=== PATIENT | female | born 1980 | race African-American/Black ===

== ENCOUNTER 2017-06-06 00:49 | Emergency (ER) | payer OTHER ==
[~2017-06-06] VITALS: Ht 152.4 cm; Wt 165.0 kg
[~2017-06-06 00:49] MED LIST: ALBU6.7H INH; LISI-360 PO
[2017-06-06 00:52] VITALS: BP 160/93; PULSE 92; RESP 20; TEMP 97.7; O2SAT 100
[2017-06-06] MEDS ORDERED: SODIUM CHLOR 0.9% 1000 ML INJ 1,000 ML IV ONE ×2 (00:55→03:45)
--- NOTE | 2017-06-06 00:59 | PD ---
HPI Chief Complaint: Chest Pain Time Seen by Provider: 00:54 Travel History International Travel<30 days: No Contact w/Intl Traveler<30days: No Traveled to known affect area: No History of Present Illness HPI The patient is a 36-year-old female who presents to the emergency department via EMS for pain all over. The patient states she developed abdominal pain yesterday that was located in epigastrium and radiated to the lower quadrants bilaterally. She then developed chest pain earlier today that was followed by arm pain and leg pain. The patient does smoke crack cocaine, however, states the crack cocaine did not alleviate her symptoms. The chest pain is substernal, abdominal pain is diffuse but worse the right lower quadrant, and the myalgias are also diffuse. The patient does state she takes lisinopril for high blood pressure. The patient is unsure when her last menstrual cycle was. The patient is a somewhat limited historian. Patient's symptoms are moderate, possibly exacerbated by crack cocaine, and there are no current alleviating factors. PFSH Past Medical History Asthma: Yes Blood Disorders: No Bipolar Disorder: Yes Depression: Yes Heart Rhythm Problems: No Cancer: No Cardiovascular Problems: Yes (htn) High Cholesterol: No Chemotherapy: No Chest Pain: No Congestive Heart Failure: No COPD: No Diabetes: Yes Diminished Hearing: No Endocrine: No Genitourinary: No Hypertension: Yes Immune Disorder: No Insomnia: Yes Musculoskeletal: No Neurologic: No Psychiatric: No Reproductive: No Respiratory: No Immunizations Current: No Radiation Therapy: No Sleep Apnea: No Thyroid Disease: No : 3 Para: 1 Miscarriage: 2 Ectopic : Yes (2008) Dilation and Curettage (D&C): Yes Tubal Ligation: Yes Past Surgical History Section: Yes (2001) Gynecologic Surgery: Yes (salpingo-oopherectomy from ectopic ) Other Surgery: Yes (ectopic ) Social History Alcohol Use: Yes Tobacco Use: Yes (RECENTLY STOPPED) Substance Use: Yes (COCAINE-SMOKE LAST MONTH) Allergies-Medications (Allergen,Severity, Reaction): Coded Allergies: carbamazepine (Unverified Allergy, Severe, anaphalactic, 06/06/17) *MDRO Multi-Drug Resistant Organism (Unverified Allergy, Unknown, 06/06/17) MRSA - groin wound 02/2014 ibuprofen (Unverified Adverse Reaction, Intermediate, ABD PAIN, DIARRHEA, 06/06/17) Reported Meds & Prescriptions Reported Meds & Active Scripts Active Lisinopril 10 mg (Lisinopril) 10 Mg Tab 1 Tab PO DAILY 30 Days Proventil Hfa (Albuterol Sulfate) 6.7 Gm Aero 2 Puff INH Q4H PRN * SHAKE WELL BEFORE USE * Proventil Hfa (Albuterol Sulfate) 6.7 Gm Aero 2 Puff INH Q4H PRN * SHAKE WELL BEFORE USE * Review of Systems Except as stated in HPI: all other systems reviewed are Neg General / Constitutional: No: Fever Cardiovascular: Positive: Chest Pain or Discomfort Respiratory: No: Shortness of Breath Gastrointestinal: Positive: Nausea, Abdominal Pain, No: Vomiting Genitourinary: Positive: Pelvic Pain, No: Dysuria, Vaginal Bleeding Musculoskeletal: Positive: Myalgias Psychiatric: Positive: Substance Abuse Physical Exam Narrative GENERAL: Awake, alert, 36-year-old female appears her stated age and is in no acute respiratory distress. SKIN: Focused skin assessment warm/dry. HEAD: Atraumatic. Normocephalic. EYES: Pupils equal and round. Pupils are 3 mm bilateral and reactive. ENT: No nasal bleeding or discharge. Mucous membranes pink and moist. No visible teeth. NECK: Trachea midline. No JVD. CARDIOVASCULAR: Regular rate and rhythm. No murmur appreciated. Heart rate in the 90s. RESPIRATORY: No accessory muscle use. Clear to auscultation. Breath sounds equal bilaterally. GASTROINTESTINAL: Abdomen soft, tender to palpation diffusely, but worse with palpation the right lower quadrant. MUSCULOSKELETAL: No obvious deformities. No clubbing. No cyanosis. No edema. NEUROLOGICAL: Awake and alert. No obvious cranial nerve deficits. Motor grossly within normal limits. Normal speech. Nonfocal. PSYCHIATRIC: Odd affect. Data Data Last Documented VS Vital Signs Date Time Temp Pulse Resp B/P (MAP) Pulse Ox O2 Delivery O2 Flow Rate FiO2 06/06/17 00:52 97.7 92 20 160/93 (115) 100 Orders Orders Complete Blood Count With Diff (06/06/17 00:55) Comprehensive Metabolic Panel (06/06/17 00:55) Complete Rh (06/06/17 00:55) Us Pelvis (Ques Pr/Ect)W Trans (06/06/17 ) Ua Includes Microscopic (06/06/17 00:55) Iv Access Insert/Monitor (06/06/17 00:55) Ecg Monitoring (06/06/17 00:55) Sodium Chlor 0.9% 1000 Ml Inj (Ns 1000 M (06/06/17 00:55) Ondansetron Inj (Zofran Inj) (06/06/17 01:00) Ed Urine Pregnancytest Poc (06/06/17 00:55) Troponin I (06/06/17 00:55) Creatine Kinase (Cpk) (06/06/17 00:55) Lipase (06/06/17 00:59) Beta Hcg (Quant/Titer) (06/06/17 01:00) Sodium Chlor 0.9% 1000 Ml Inj (Ns 1000 M (06/06/17 03:45) Cath For Specimen (06/06/17 04:49) Labs Laboratory Tests Test 06/06/17 01:00 06/06/17 05:20 White Blood Count 5.0 TH/MM3 Red Blood Count 4.00 MIL/MM3 Hemoglobin 11.5 GM/DL Hematocrit 34.8 % Mean Corpuscular Volume 86.9 FL Mean Corpuscular Hemoglobin 28.6 PG Mean Corpuscular Hemoglobin Concent 33.0 % Red Cell Distribution Width 12.9 % Platelet Count 225 TH/MM3 Mean Platelet Volume 9.5 FL Neutrophils (%) (Auto) 70.3 % Lymphocytes (%) (Auto) 23.4 % Monocytes (%) (Auto) 5.5 % Eosinophils (%) (Auto) 0.3 % Basophils (%) (Auto) 0.5 % Neutrophils # (Auto) 3.5 TH/MM3 Lymphocytes # (Auto) 1.2 TH/MM3 Monocytes # (Auto) 0.3 TH/MM3 Eosinophils # (Auto) 0.0 TH/MM3 Basophils # (Auto) 0.0 TH/MM3 CBC Comment DIFF FINAL Differential Comment Blood Urea Nitrogen 14 MG/DL Creatinine 0.86 MG/DL Random Glucose 133 MG/DL Total Protein 7.6 GM/DL Albumin 3.5 GM/DL Calcium Level 8.6 MG/DL Alkaline Phosphatase 54 U/L Aspartate Amino Transf (AST/SGOT) 18 U/L Alanine Aminotransferase (ALT/SGPT) 17 U/L Total Bilirubin 0.6 MG/DL Sodium Level 137 MEQ/L Potassium Level 3.5 MEQ/L Chloride Level 104 MEQ/L Carbon Dioxide Level 25.2 MEQ/L Anion Gap 8 MEQ/L Estimat Glomerular Filtration Rate 90 ML/MIN Total Creatine Kinase 79 U/L Troponin I LESS THAN 0.02 NG/ML Lipase 149 U/L Human Chorionic Gonadotropin, Quant 2326 MIU/ML Urine Color YELLOW Urine Turbidity CLEAR Urine pH 5.5 Urine Specific [place] 1.032 Urine Protein 30 mg/dL Urine Glucose (UA) NEG mg/dL Urine Ketones NEG mg/dL Urine Occult Blood NEG Urine Nitrite NEG Urine Bilirubin NEG Urine Urobilinogen 2.0 MG/DL Urine Leukocyte Esterase NEG Urine RBC 1 /hpf Urine WBC 1 /hpf Urine Squamous Epithelial Cells 2 /hpf Urine Mucus MOD /lpf MDM Medical Decision Making Medical Screen Exam Complete: Yes Emergency Medical Condition: Yes Medical Record Reviewed: Yes Interpretation(s) EKG reveals normal sinus rhythm with a rate of 99. Voltage criteria for LVH. Nonspecific ST changes. Inverted T waves noted in lead 3. Ultrasound of the pelvis reveals complex fluid within the right adnexa with more simple-appearing fluid within the cul-de-sac. No gestational sac currently seen. Given the quantitative beta hCG this likely relates to the age of the which is below the threshold for technology solutions architect chin of the gestational sac. Consider short term follow-up pelvic ultrasound. Differential Diagnosis Differential diagnosis includes ectopic , rhabdomyolysis, pancreatitis , polysubstance abuse, pericarditis, myocarditis, acute coronary syndrome, cocaine abuse, acute renal failure, electrolyte abnormality. Narrative Course IV was established, labs are drawn and sent, and the patient was placed on cardiac telemetry monitoring and continuous pulse oximetry monitoring. Bedside UA test was positive, therefore, formal beta hCG was ordered. Ultrasound was ordered to rule out ectopic with abdominal pain located in the right lower quadrant and previous history of ectopic per EMR. EKG was ordered and interpreted. The patient was administered IV fluids and Zofran. Troponin, lipase, and CPK were sent to lab. Beta hCG was 2326. Ultrasound reveals complex fluid within the right adnexa with more simple-appearing fluid within the cul-de-sac, no gestational sac currently seen. Per radiology given the quantitative hCG this likely relates to the age of the which is below the threshold for ultrasound attacks and the gestational sac and they recommend short term follow-up pelvic ultrasound. I had a discussion with the patient she does note a history of previous right ectopic with previous surgery and removal of the right fallopian tube per her report. She denies any current vaginal bleeding. I reviewed the EMR, the patient underwent right salpingectomy [address] Sun. The patient's blood type was B+, therefore, no indication for RhoGAM. The patient was reevaluated at 6 AM, her abdominal pain is resolved. She denies any vaginal bleeding, UA is negative. She is advised to return in 48-72 hours for repeat beta hCG and ultrasound. Diagnosis Primary Impression: Threatened Additional Impression: Cocaine abuse affecting in first trimester Patient Instructions: General Instructions Additional Instructions: Take a vitamin daily. Return in 4872 hours for repeat beta hCG and ultrasound. Return sooner for vaginal bleeding and increasing abdominal pain. Stop using cocaine. Med/Other Pt SpecificInfo: No Change to Meds Disposition: 01 DISCHARGE HOME Condition: Stable Helio Anglin MD Jun 06, 2017 00:59
[2017-06-06] MEDS ORDERED: ONDANSETRON HCL 4 MG/2 ML VIAL IVP ONE (01:00)
--- NOTE | 2017-06-06 03:03 | RADRPT ---
EXAM DATE/TIME: 06/06/2017 01:38 [facility] COMPARISON: US PELVIS (QUEST PREG/ECTOPIC) W/TRANSVAG, November 07, 2013, 2:49. INDICATIONS : Pelvic pain. LAB(S): Beta-hC MEDICAL HISTORY : . Hypertension. Ectopic . Cerebrovascular accident. Diabetes. SURGICAL HISTORY : section. Tubal ligation. Dilation and curettage. Salpingo-ooperectomy. ENCOUNTER: Initial ACUITY: 1 day PAIN SCORE: 10/10 LOCATION: Bilateral pelvis MEASUREMENTS: UTERUS: 7.7 x 5.8 x 4.3 cm ENDOMETRIAL STRIPE: 7 mm RIGHT OVARY: NOT VISUALIZED cm LEFT OVARY: 3.6 x 2.0 x 2.1 cm FREE FLUID: Yes Left adnexa, cul-de-sac CROWN RUMP LENGTH: NOT VISUALIZED = WKS DAYS FHR: NOT VISUALIZED BPM FINDINGS: UTERUS: The myometrium has homogeneous echotexture without mass.No gestational sac observed. RIGHT OVARY: Surgically absent. Complex fluid is seen involving the right adnexa. LEFT OVARY: Left ovary contains a 17 mm simple cyst. MISCELLANEOUS: Complex fluid within the right adnexa with more simple fluid in the cul-de-sac. CONCLUSION: 1. Complex fluid within the right adnexa with more simple appearing fluid within the cul-de-sac. 2. No gestational sac currently seen. Given the quantitative beta hCG this likely relates to the age of the which is below the threshold for ultrasound detection of the gestational sac. Consid er a short term followup pelvic ultrasound. Sung Rubio Jr., MD on June 06, 2017 at 2:47 Board Certified Radiologist. This report was verified electronically.
[2017-06-06 03:18] LABS: AUTOMATED NEUTROPHIL # 3.5 TH/MM3 (1.8-7.7); BASOPHIL % 0.5 % (0.0-2.0); EOSINOPHIL % 0.3 % (0.0-4.0); HEMATOCRIT 34.8 % (35.0-46.0); HEMO FLAGS DIFF FINAL; LYMPH % 23.4 % (9.0-44.0); LYMPHOCYTE # 1.2 TH/MM3 (1.0-4.8); MEAN CELL VOLUME 86.9 FL (80.0-100.0); MEAN CORPUSCULAR HEMOGLOBIN 28.6 PG (27.0-34.0); MONO % 5.5 % (0.0-8.0); NEUT % 70.3 % (16.0-70.0); PLATELET COUNT 225 TH/MM3 (150-450); RED CELL DISTRIBUTION WIDTH 12.9 % (11.6-17.2)
[2017-06-06 03:20] LABS: ALKALINE PHOSPHATASE 54 U/L (45-117); ALT (GPT) 17 U/L (10-53); ANION GAP 8 MEQ/L (5-15); AST (GOT) 18 U/L (15-37); BETA HCG QUANT 2326 MIU/ML (0-5); BICARBONATE 25.2 MEQ/L (21.0-32.0); BLOOD UREA NITROGEN 14 MG/DL (7-18); CHLORIDE 104 MEQ/L (98-107); GLOMERULAR FILTRATION RATE 90 ML/MIN (>89); POTASSIUM 3.5 MEQ/L (3.5-5.1); SODIUM (NA) 137 MEQ/L (136-145)
[2017-06-06 03:37] LABS: CREATINE KINASE 79 U/L (26-192); TOTAL BILIRUBIN ADULT 0.6 MG/DL (0.2-1.0)
[2017-06-06 05:59] LABS: BLOOD, URINE NEG (NEG); GLUCOSE,URINE NEG (NEG); KETONE, URINE NEG (NEG); MUCUS URINE MOD /lpf (OCC); NITRITE,URINE NEG (NEG); PH, URINE 5.5 (5.0-8.5); SQUAMOUS EPITHELIAL CELL URINE 2 /hpf (0-5); URINE COLOR YELLOW (YELLW/STRAW)
--- NOTE | 2017-06-06 13:01 | EKG ---
Date Performed: 06/06/2017 Time Performed: 00:51:31 PTAGE: 36 years EKG: Sinus rhythm VOLTAGE CRITERIA FOR LVH MODERATE ST DEPRESSION ABNORMAL ECG INTERPRETATION BASED ON A DEFAULT AGE O F 40 YEARS NO PREVIOUS TRACING DOCTOR: Eliot Hernández Interpretating Date/Time 06/06/2017 12:57:59
== END 2017-06-06 06:51 | disposition home or self-care (01) ==
LOC: NEPC 00:49
DX: O20.0 Threatened abortion (principal); F14.10 Cocaine abuse, uncomplicated; R07.9 Chest pain, unspecified; J45.909 Unspecified asthma, uncomplicated; I10 Essential (primary) hypertension; E11.9 Type 2 diabetes mellitus without complications; R94.31 Abnormal electrocardiogram [ECG] [EKG]
CPT/HCPCS: 76700; 76817; 80053; 81001; 82550; 83690; 84484; 84702; 84703; 85025; 86901; 93005; 96374; 99285; J2405; J7030; P9612

== ENCOUNTER 2017-06-08 14:40 | Emergency (ER) | payer OTHER ==
[~2017-06-08] VITALS: Ht 152.4 cm; Wt 75.0 kg
[2017-06-08 14:44] VITALS: BP 142/79; PULSE 94; RESP 18; TEMP 98.6; O2SAT 99
--- NOTE | 2017-06-08 14:48 | PD ---
Physical Exam Date Seen by Provider: Jun 08, 2017 Time Seen by Provider: 14:46 Narrative 36 yo female here for evaluation of lab recheck. Seen here on the 8th for this. Concerned for . Told to come here for evaluation of blood and per patient "EKG". Per records for US. Vitals are stable in triage. Awaiting bed placement. Data Data Last Documented VS Vital Signs Date Time Temp Pulse Resp B/P (MAP) Pulse Ox O2 Delivery O2 Flow Rate FiO2 06/08/17 14:44 98.6 94 18 142/79 (100) 99 Room Air [facility] Medical Record Reviewed: Yes Supervised Visit with KATRINA: No Fernando Cheng Jun 08, 2017 14:47
--- NOTE | 2017-06-08 18:25 | PD ---
HPI Chief Complaint: Medical Clearance Time Seen by Provider: 17:31 Travel History International Travel<30 days: No Contact w/Intl Traveler<30days: No Traveled to known affect area: No History of Present Illness HPI This is a 36-year-old woman who presents to the emergency department complaining of abdominal pain, probably related to crack cocaine use. She was seen 2 days ago was found to be . She had a hCG of 2325. She had ultrasound that failed to show an IUP. She was recommended to return for repeat hCG and possible ultrasound. She endorses improvement in her epigastric abdominal pain and chest pain. Denies any vaginal bleeding or urinary symptoms. No other complaints. She is 4 para 1, 2 previous miscarriages including a previous ectopic. PFSH Past Medical History Narrative Medical Hypertension Bipolar disorder Crack cocaine use Diabetes Asthma: Yes Blood Disorders: No Bipolar Disorder: Yes Depression: Yes Heart Rhythm Problems: No Cancer: No Cardiovascular Problems: Yes (htn) High Cholesterol: No Chemotherapy: No Chest Pain: No Congestive Heart Failure: No COPD: No Diabetes: Yes Patient Takes Glucophage: No Diminished Hearing: No Endocrine: No Gastrointestinal Disorders: No Genitourinary: No Hypertension: Yes Immune Disorder: No Implanted Vascular Access Dvce: No Insomnia: Yes Musculoskeletal: No Neurologic: No Psychiatric: No Reproductive: No Respiratory: No Immunizations Current: No Radiation Therapy: No Sleep Apnea: No Thyroid Disease: No ?: LMP: 04/25/17 : 3 Para: 1 Miscarriage: 2 Ectopic : Yes (2008) Dilation and Curettage (D&C): Yes Tubal Ligation: Yes Past Surgical History Section: Yes (2001) Gynecologic Surgery: Yes (salpingo-oopherectomy from ectopic ) Other Surgery: Yes (ectopic ) Social History Alcohol Use: Yes Tobacco Use: Yes (RECENTLY STOPPED) Substance Use: Yes (COCAINE-SMOKE LAST MONTH) Allergies-Medications (Allergen,Severity, Reaction): Coded Allergies: carbamazepine (Unverified Allergy, Severe, anaphalactic, 06/06/17) *MDRO Multi-Drug Resistant Organism (Unverified Allergy, Unknown, 06/06/17) MRSA - groin wound 02/2014 ibuprofen (Unverified Adverse Reaction, Intermediate, ABD PAIN, DIARRHEA, 06/06/17) Reported Meds & Prescriptions Reported Meds & Active Scripts Active Reported Proventil Hfa 6.7 GM Inh (Albuterol Sulfate) 90 Mcg/Act Aer 2 Puff INH Q4-6H PRN Lisinopril 10 Mg Tab 10 Mg PO DAILY Review of Systems Except as stated in HPI: all other systems reviewed are Neg Physical Exam Narrative GENERAL: Well-appearing 36-year-old woman, no acute distress. SKIN: Focused skin assessment warm/dry. HEAD: Atraumatic. Normocephalic. CARDIOVASCULAR: Regular rate and rhythm. No murmur appreciated. RESPIRATORY: No accessory muscle use. Clear to auscultation. Breath sounds equal bilaterally. GASTROINTESTINAL: Abdomen flat and soft. No significant tenderness. MUSCULOSKELETAL: No obvious deformities. No edema. Data Data Last Documented VS Vital Signs Date Time Temp Pulse Resp B/P (MAP) Pulse Ox O2 Delivery O2 Flow Rate FiO2 06/08/17 18:46 83 18 138/83 (101) 98 Room Air 06/08/17 14:44 98.6 Orders Orders Beta Hcg (Quant/Titer) (06/08/17 17:34) Labs Laboratory Tests Test 06/08/17 18:05 Human Chorionic Gonadotropin, Quant 4992 MIU/ML [facility] Medical Decision Making Medical Screen Exam Complete: Yes Emergency Medical Condition: Yes Interpretation(s) HCG 4992, up from 2326 Differential Diagnosis Threatened AB, ectopic, IUP, other Narrative Course Medical decision making 36-year-old woman with epigastric abdominal pain, here for repeat hCG. HCG is doubling appropriately. No symptoms of abdominal pain or bleeding. Recommend outpatient follow-up. Diagnosis Primary Impression: Patient Instructions: General Instructions Additional Instructions: Follow-up with an hot stamp operator. Return to the emergency department for any worsening abdominal pain, vaginal bleeding, or any other new or worsening symptoms. Disposition: 01 DISCHARGE HOME Condition: Stable Scar Morris MD Jun 08, 2017 18:25
[2017-06-08 18:46] VITALS: BP 138/83; PULSE 83; RESP 18; O2SAT 98
[2017-06-08 18:46] LABS: BETA HCG QUANT 4992 MIU/ML (0-5)
[2017-06-08] MEDS ORDERED: LISI10TA3 PO (18:52)
[2017-06-08] MEDS ORDERED: ALBU6.7H INH (18:53)
== END 2017-06-08 19:40 | disposition home or self-care (01) ==
LOC: NEPD 14:40
DX: O26.899 Other specified pregnancy related conditions, unspecified trimester (principal); O26.20 Pregnancy care for patient with recurrent pregnancy loss, unspecified trimester; O10.919 Unspecified pre-existing hypertension complicating pregnancy, unspecified trimester; Z3A.00 Weeks of gestation of pregnancy not specified
CPT/HCPCS: 84702; 99283

== ENCOUNTER 2017-06-13 01:47 | Emergency (ER) | payer OTHER ==
[~2017-06-13] VITALS: Ht 152.4 cm; Wt 60.0 kg
[~2017-06-13 01:47] MED LIST changes: -LISI-360 PO; +LISI10TA3 PO
[2017-06-13 01:57] VITALS: BP 149/75; PULSE 90; RESP 18; TEMP 98.6; O2SAT 18; O2SAT 97
--- NOTE | 2017-06-13 02:56 | PD ---
HPI Chief Complaint: Abdominal Pain Time Seen by Provider: 02:15 Travel History International Travel<30 days: No Contact w/Intl Traveler<30days: No Traveled to known affect area: No History of Present Illness HPI 36 years old female complains of chest pain and abdominal pain. Patient states that the chest pain and abdominal pain started about week ago. Patient was seen in emergency room a week ago and was found to be . Ultrasound at that time failed to show an IUP. Beta hCG was 2325. Patient returned 2 days after that and beta hCG was double. Patient was advised to follow local physician. Patient states that she had persistent chest pain and abdominal pain since then. Patient states the chest pain is across anterior chest wall pressure. Patient denies any chest pain radiation. Patient denies palpitation nausea diaphoresis. Patient states abdominal pain is cramping pain and sharp pain diffuse over the abdomen however worse on the lower abdomen. Patient denies any pain radiation. Patient denies any nausea vomiting diarrhea. Patient denies any dysuria or frequency. Patient denies any vaginal discharge or bleeding. Patient denies any fever chills. Patient has history of crack cocaine use about a week ago. Patient states that she has been smoking marijuana recently. PFSH Past Medical History Asthma: Yes Blood Disorders: No Bipolar Disorder: Yes Depression: Yes Heart Rhythm Problems: No Cancer: No Cardiovascular Problems: Yes (htn) High Cholesterol: No Chemotherapy: No Chest Pain: No Congestive Heart Failure: No COPD: No Cerebrovascular Accident: Yes Diabetes: Yes Patient Takes Glucophage: No Diminished Hearing: No Endocrine: No Gastrointestinal Disorders: No Genitourinary: No Hypertension: Yes Immune Disorder: No Implanted Vascular Access Dvce: No Insomnia: Yes Musculoskeletal: No Neurologic: No Psychiatric: No Reproductive: No Respiratory: No Immunizations Current: No Radiation Therapy: No Sleep Apnea: No Thyroid Disease: No ?: : 3 Para: 1 Miscarriage: 2 Ectopic : Yes (2008) Dilation and Curettage (D&C): Yes Tubal Ligation: Yes Past Surgical History Section: Yes (2001) Gynecologic Surgery: Yes (salpingo-oopherectomy from ectopic ) Other Surgery: Yes (ectopic ) Social History Alcohol Use: Yes Tobacco Use: Yes (RECENTLY STOPPED) Substance Use: Yes (COCAINE-SMOKE LAST MONTH, MARIJUANA) Allergies-Medications (Allergen,Severity, Reaction): Coded Allergies: carbamazepine (Unverified Allergy, Severe, anaphalactic, 06/13/17) *MDRO Multi-Drug Resistant Organism (Unverified Allergy, Unknown, 06/13/17 ) MRSA - groin wound 02/2014 ibuprofen (Unverified Adverse Reaction, Intermediate, ABD PAIN, DIARRHEA, 06/13/17) Reported Meds & Prescriptions Reported Meds & Active Scripts Active Reported Proventil Hfa 6.7 GM Inh (Albuterol Sulfate) 90 Mcg/Act Aer 2 Puff INH Q4-6H PRN Lisinopril 10 Mg Tab 10 Mg PO DAILY Review of Systems General / Constitutional: No: Fever Eyes: No: Visual changes HENT: No: Headaches Cardiovascular: Positive: Chest Pain or Discomfort Respiratory: No: Shortness of Breath Gastrointestinal: Positive: Abdominal Pain Genitourinary: No: Dysuria Musculoskeletal: No: Pain Skin: No Rash Neurologic: No: Weakness Psychiatric: No: Depression Endocrine: No: Polydipsia Hematologic/Lymphatic: No: Easy Bruising Physical Exam Narrative GENERAL: Well-nourished, well-developed patient. SKIN: Focused skin assessment warm/dry. HEAD: Normocephalic. EYES: No scleral icterus. No injection or drainage. NECK: Supple, trachea midline. No JVD or lymphadenopathy. CARDIOVASCULAR: Regular rate and rhythm without murmurs, gallops, or rubs. RESPIRATORY: Breath sounds equal bilaterally. No accessory muscle use. GASTROINTESTINAL: Abdomen soft, nondistended. Patient has moderate diffuse tenderness over the abdomen especially lower abdomen. No rebound tenderness. No mass. MUSCULOSKELETAL: No cyanosis, or edema. BACK: Nontender without obvious deformity. No CVA tenderness. Neurologic exam normal. Data Data Last Documented VS Vital Signs Date Time Temp Pulse Resp B/P (MAP) Pulse Ox O2 Delivery O2 Flow Rate FiO2 06/13/17 03:12 Room Air 06/13/17 01:57 98.6 90 18 149/75 (99) 97 Orders Orders Complete Blood Count With Diff (06/13/17 02:41) Comprehensive Metabolic Panel (06/13/17 02:41) Prothrombin Time / Inr (Pt) (06/13/17 02:41) Act Partial Throm Time (Ptt) (06/13/17 02:41) Lipase (06/13/17 02:41) Beta Hcg (Quant/Titer) (06/13/17 02:41) Thyroid Stimulating Hormone (06/13/17 02:41) Iv Access Insert/Monitor (06/13/17 02:41) Ecg Monitoring (06/13/17 02:41) Oximetry (06/13/17 02:41) Chest, Single Ap (06/13/17 03:16) Us Pelvis (Ques Preg/Ectopic) (06/13/17 02:41) Labs Laboratory Tests Test 06/13/17 02:50 White Blood Count 9.6 TH/MM3 Red Blood Count 3.14 MIL/MM3 Hemoglobin 9.2 GM/DL Hematocrit 27.7 % Mean Corpuscular Volume 88.3 FL Mean Corpuscular Hemoglobin 29.4 PG Mean Corpuscular Hemoglobin Concent 33.3 % Red Cell Distribution Width 12.9 % Platelet Count 235 TH/MM3 Mean Platelet Volume 9.1 FL Neutrophils (%) (Auto) 84.8 % Lymphocytes (%) (Auto) 9.3 % Monocytes (%) (Auto) 5.1 % Eosinophils (%) (Auto) 0.4 % Basophils (%) (Auto) 0.4 % Neutrophils # (Auto) 8.1 TH/MM3 Lymphocytes # (Auto) 0.9 TH/MM3 Monocytes # (Auto) 0.5 TH/MM3 Eosinophils # (Auto) 0.0 TH/MM3 Basophils # (Auto) 0.0 TH/MM3 CBC Comment DIFF FINAL Differential Comment Prothrombin Time 10.4 SEC Prothromb Time International Ratio 0.9 RATIO Activated Partial Thromboplast Time 29.6 SEC Blood Urea Nitrogen 14 MG/DL Creatinine 0.88 MG/DL Random Glucose 133 MG/DL Total Protein 7.9 GM/DL Albumin 3.4 GM/DL Calcium Level 8.4 MG/DL Alkaline Phosphatase 67 U/L Aspartate Amino Transf (AST/SGOT) 19 U/L Alanine Aminotransferase (ALT/SGPT) 14 U/L Total Bilirubin 0.8 MG/DL Sodium Level 137 MEQ/L Potassium Level 3.3 MEQ/L Chloride Level 103 MEQ/L Carbon Dioxide Level 25.7 MEQ/L Anion Gap 8 MEQ/L Estimat Glomerular Filtration Rate 88 ML/MIN Lipase 117 U/L Thyroid Stimulating Hormone 3rd Gen 1.530 uIU/ML Human Chorionic Gonadotropin, Quant 6772 MIU/ML MDM Medical Decision Making Medical Screen Exam Complete: Yes Emergency Medical Condition: Yes Medical Record Reviewed: Yes Interpretation(s) 2:55 AM. EKG shows sinus rhythm with inverted T waves in 2, 3, aVF, V4 V5 and V6 which is new compared to previous EKG. Differential Diagnosis Differential diagnosis including angina, PE, pneumothorax, ectopic , threatened AB, incomplete AB, completed AB. Narrative Course 4:15 AM. Patient refused pelvic ultrasound because she does not like the information technology associate. I explained to the patient that information technology associate is the only one available tonight. 4:20 AM. I spoke with ED OB. ED OB advised me that patient will not be seen by him unless pelvic ultrasound done. VQ scan was ordered. VQ scan switch technician came to the bedside to take patient to nuclear medicine. Patient also refused VQ scan to rule out PE. I spoke with the patient several time and stressing the importance of having the studies done. Patient still refused ultrasound and VQ scan. 4:50 AM. I was informed by my nurse patient left the exam room and went outside to leave within left the building. Police department was contacted by the charge nurse to contact the patient to advise patient to come back to the ED for evaluation and treatment. Diagnosis Primary Impression: Ectopic Qualified Codes: O00.90 - Unspecified ectopic without intrauterine Additional Impression: Chest pain Qualified Codes: R07.9 - Chest pain, unspecified Disposition: 07 AGAINST MEDICAL ADVICE Condition: Serious Tolu Hou MD Jun 13, 2017 02:56
[2017-06-13 03:31] LABS: AUTOMATED NEUTROPHIL # 8.1 TH/MM3 (1.8-7.7); BASOPHIL % 0.4 % (0.0-2.0); EOSINOPHIL % 0.4 % (0.0-4.0); HEMATOCRIT 27.7 % (35.0-46.0); HEMO FLAGS DIFF FINAL; LYMPH % 9.3 % (9.0-44.0); LYMPHOCYTE # 0.9 TH/MM3 (1.0-4.8); MEAN CELL VOLUME 88.3 FL (80.0-100.0); MEAN CORPUSCULAR HEMOGLOBIN 29.4 PG (27.0-34.0); MEAN CORPUSCULAR HGB CONC 33.3 % (32.0-36.0); MONO % 5.1 % (0.0-8.0); NEUT % 84.8 % (16.0-70.0); PLATELET COUNT 235 TH/MM3 (150-450); RED BLOOD COUNT 3.14 MIL/MM3 (4.00-5.30); RED CELL DISTRIBUTION WIDTH 12.9 % (11.6-17.2); WHITE BLOOD COUNT 9.6 TH/MM3 (4.0-11.0)
[2017-06-13 03:43] LABS: APTT (PATIENT) 29.6 SEC (24.3-30.1); INTERNATIONAL NORMALIZED RATIO 0.9 RATIO; PROTHROMBIN TIME - PATIENT 10.4 SEC (9.8-11.6)
[2017-06-13 03:45] LABS: ALT (GPT) 14 U/L (10-53); ANION GAP 8 MEQ/L (5-15); AST (GOT) 19 U/L (15-37); BICARBONATE 25.7 MEQ/L (21.0-32.0); BLOOD UREA NITROGEN 14 MG/DL (7-18); CHLORIDE 103 MEQ/L (98-107); GLOMERULAR FILTRATION RATE 88 ML/MIN (>89); POTASSIUM 3.3 MEQ/L (3.5-5.1); SODIUM (NA) 137 MEQ/L (136-145)
--- NOTE | 2017-06-13 03:50 | RADRPT ---
EXAM DATE/TIME: 06/13/2017 03:33 [facility] COMPARISON: CHEST SINGLE AP, January 04, 2016, 21:04. INDICATIONS : Chest pain. MEDICAL HISTORY : . Hypertension. Ectopic . Cerebrovascular accident. Diabetes SURGICAL HISTORY : section. Tubal ligation. Dilation and curettage. Salpingo-ooperectomy ENCOUNTER: Initial ACUITY: 1 day PAIN SCORE: Non-responsive. LOCATION: Bilateral chest FINDINGS: A single view of the chest demonstrates the lungs to be symmetrically aerated without evidence of mas s, infiltrate or effusion. The cardiomediastinal contours are unremarkable. Osseous structures are intact. CONCLUSION: Normal examination. Michael Breen MD on June 13, 2017 at 3:48 Board Certified Radiologist. This report was verified electronically.
[2017-06-13 04:02] LABS: ALKALINE PHOSPHATASE 67 U/L (45-117); BETA HCG QUANT 6772 MIU/ML (0-5); TOTAL BILIRUBIN ADULT 0.8 MG/DL (0.2-1.0)
--- NOTE | 2017-06-13 05:20 | RADRPT ---
EXAM DATE/TIME: 06/13/2017 03:38 [facility] COMPARISON: No previous studies available for comparison. INDICATIONS : Pain. LAB(S): Beta-[facility]C MEDICAL HISTORY : . Hypertension. Ectopic . Cerebrovascular accident. Diabetes. Crack, cocaine abuse. SURGICAL HISTORY : section. Tubal ligation. Dilation and curettage. Salpingo-ooperectomy. ENCOUNTER: Subsequent ACUITY: 1 day PAIN SCORE: 5/10 LOCATION: Bilateral pelvis MEASUREMENTS: UTERUS: 10.2 x 6.9 x 6.0 cm ENDOMETRIAL STRIPE: 10 mm RIGHT OVARY: cm Non visualized LEFT OVARY: cm Non visualized FREE FLUID: Yes pelvis. FINDINGS: Only a transabdominal ultrasound was performed. The patient refused a transvaginal ultrasound examina tion. UTERUS: The myometrium has homogeneous echotexture without mass. An IUP is not seen. RIGHT OVARY: The right ovary is not seen. LEFT OVARY: Ovary contains no mass or significant cystic lesion. MISCELLANEOUS: There is a large amount of complex fluid in the cul-de-sac. CONCLUSION: 1. An IUP is not seen on the transabdominal ultrasound examination. The patient refused a transvagina l ultrasound examination. 2. Large amount of complex fluid in the cul-de-sac. Hemorrhage and ectopic are not excluded. Michael Breen MD on June 13, 2017 at 5:14 Board Certified Radiologist. This report was verified electronically.
== END 2017-06-13 05:35 | disposition left against medical advice (07) ==
LOC: NEPC 01:47
DX: O00.90 Unspecified ectopic pregnancy without intrauterine pregnancy (principal); F12.90 Cannabis use, unspecified, uncomplicated
CPT/HCPCS: 71010; 76700; 80053; 83690; 84443; 84702; 85025; 85610; 85730; 99285

== ENCOUNTER 2017-06-13 06:27 | Inpatient (IN) | payer OTHER ==
[~2017-06-13] VITALS: Ht 152.4 cm; Wt 74.0 kg
[2017-06-13] VITALS (10 sets, daily range): BP systolic 93–131; BP diastolic 53–79; PULSE 86–108; RESP 16–22; TEMP 97.9–98.9; O2SAT 22–100
[2017-06-13] MEDS ORDERED: OLANZapine ODT 10 MG TAB PO ONE (07:30)
--- NOTE | 2017-06-13 07:46 | EKG ---
Date Performed: 06/13/2017 Time Performed: 02:07:52 PTAGE: 36 years EKG: Sinus rhythm LEFT VENTRICULAR HYPERTROPHY AND ST-T CHANGE ABNORMAL ECG No significant change from prior electroca rdiogram. NO PREVIOUS TRACING DOCTOR: Gui Garland Interpretating Date/Time 06/13/2017 07:45:57
--- NOTE | 2017-06-13 08:21 | PD ---
HPI Chief Complaint: Related Problem Time Seen by Provider: 06:56 Travel History International Travel<30 days: No Contact w/Intl Traveler<30days: No Traveled to known affect area: No History of Present Illness HPI This is a 36-year-old female who has a history of bipolar disorder who presents to the emergency department with abdominal discomfort and chest discomfort, constant, moderate severity, worse with deep breaths. Patient does have a history of cocaine use. She is . She was seen overnight in the emergency department and had an ultrasound which demonstrated no in the uterus and she had a beta hCG of 6000 consistent with a likely ectopic . Patient became agitated and left AGAINST MEDICAL ADVICE. She returns here this morning for further evaluation and has her with her. PFSH Past Medical History Asthma: Yes Blood Disorders: No Bipolar Disorder: Yes Depression: Yes Heart Rhythm Problems: No Cancer: No Cardiovascular Problems: Yes (htn) High Cholesterol: No Chemotherapy: No Chest Pain: No Congestive Heart Failure: No COPD: No Cerebrovascular Accident: Yes Diabetes: Yes Patient Takes Glucophage: No Diminished Hearing: No Endocrine: No Gastrointestinal Disorders: No Genitourinary: No Hypertension: Yes Immune Disorder: No Implanted Vascular Access Dvce: No Insomnia: Yes Musculoskeletal: No Neurologic: No Psychiatric: No Reproductive: No Respiratory: No Immunizations Current: No Radiation Therapy: No Sleep Apnea: No Thyroid Disease: No Tetanus Vaccination: < 5 Years ?: LMP: 04/25/2017 : 3 Para: 1 Miscarriage: 2 Ectopic : Yes (2008) Dilation and Curettage (D&C): Yes Tubal Ligation: Yes Past Surgical History Section: Yes (2001) Gynecologic Surgery: Yes (salpingo-oopherectomy from ectopic ) Other Surgery: Yes (ectopic ) Social History Alcohol Use: Yes Tobacco Use: Yes (RECENTLY STOPPED) Substance Use: Yes (COCAINE-SMOKE LAST MONTH, MARIJUANA) Allergies-Medications (Allergen,Severity, Reaction): Coded Allergies: carbamazepine (Unverified Allergy, Severe, anaphalactic, 06/13/17) *MDRO Multi-Drug Resistant Organism (Unverified Allergy, Unknown, 06/13/17 ) MRSA - groin wound 02/2014 ibuprofen (Unverified Adverse Reaction, Intermediate, ABD PAIN, DIARRHEA, 06/13/17) Reported Meds & Prescriptions Reported Meds & Active Scripts Active Reported Proventil Hfa 6.7 GM Inh (Albuterol Sulfate) 90 Mcg/Act Aer 2 Puff INH Q4-6H PRN Lisinopril 10 Mg Tab 10 Mg PO DAILY Review of Systems Except as stated in HPI: all other systems reviewed are Neg Physical Exam Narrative GENERAL: Well-appearing, no acute distress, nontoxic SKIN: Warm and dry. HEAD: Atraumatic. Normocephalic. ENT: No nasal bleeding or discharge. Moist mucous membranes MUSCULOSKELETAL: No obvious deformities. No clubbing. No cyanosis. No edema. NEUROLOGICAL: Awake and alert. No obvious cranial nerve deficits. Motor grossly within normal limits. Normal speech. PSYCHIATRIC: Paranoia and pressured speech Data Data Last Documented VS Vital Signs Date Time Temp Pulse Resp B/P (MAP) Pulse Ox O2 Delivery O2 Flow Rate FiO2 06/13/17 07:55 86 18 113/79 (90) 100 Room Air 06/13/17 06:30 97.9 Orders Orders Troponin I (06/13/17 07:13) Ventilation & Perfusion Scan (06/13/17 ) Olanzapine Odt (Zyprexa Zydis Odt) (06/13/17 07:30) Electrocardiogram (06/13/17 02:07) Labs Laboratory Tests Test 06/13/17 07:45 [facility] Medical Decision Making Medical Screen Exam Complete: Yes Emergency Medical Condition: Yes Medical Record Reviewed: Yes (chart was reviewed from overnight with ultrasound demonstrating no intrauterine ) Interpretation(s) [place] 6[address] Pelvic ultrasound demonstrates no IUP and fluid in the cul-de-sac Differential Diagnosis Ectopic , ruptured ectopic , pulmonary embolism, myocardial infarction, dilated cardiomyopathy Narrative Course This is a 36-year-old female who presents to the emergency department with chest pain and abdominal discomfort. She has a history of bipolar disorder which resulted in her leaving AGAINST MEDICAL ADVICE overnight. Currently she appears stable with a normal heart rate and normal blood pressure. She is still somewhat manic and very paranoid on exam. I was concerned she would leave again and she agreed to take an antipsychotic medication. She was given Zyprexa. In discussion with the physician from overnight he was concerned for pulmonary embolism. Patient does have some diffuse T-wave inversions and LVH on EKG which I suspect are related to underlying cardiomyopathy perhaps due to her cocaine use but given her presence of pleuritic chest pain and VQ scan will be obtained. I spoke to the on-call automatic glove turner and former who will consult on the patient and consider potential surgical intervention versus medical management for ectopic following the results of the patient's VQ scan. I think she is stable and she'll be admitted to the medical service. Diagnosis Primary Impression: Ectopic Qualified Codes: O00.90 - Unspecified ectopic without intrauterine Additional Impression: Chest pain Qualified Codes: R07.9 - Chest pain, unspecified Admitting Information Admitting Physician Requests: it Carmen Hinojosa MD Jun 13, 2017 08:21
--- NOTE | 2017-06-13 08:56 | HHI.HP ---
HPI Service Family Medicine Primary Care Physician Unknown Admission Diagnosis ectopic , chest pain Diagnoses: International Travel<30 Days: No Contact w/Intl Traveler<30days: No Known Affected Area: No History of Present Illness Pt is a 36 y/o w/hx of cocaine use and bipolar disorder who presents to [place] ED with one week of abdominal pain and chest discomfort. Patient is somnolent and unable to provide hx at time of interview. Only rouses momentarily to pain. She was described as disruptive and manic on admission, so was given Zyprexa in the ED. Patient has been previously seen in the ED with similar complaints (06/06/2017). Quant hCG was 2326, + test, but U/S showed no intrauterine .She was sent home and returned on 06/08 where hcG doubled and d/c'd. Patient arrived at ED early this AM with increased quant hCG and similar abdominal pain. US in the ED showed free fluid in the posterior cul-de-sac suspicious for hemorrhage/ruptured ectopic. For her chest discomfort, EKG was performed, showed t-wave inversions and possible LVH raising concern for PE v recent cocaine use. V/Q scan was positive for PE. Patient underwent diagnostic laparoscopy today due to concern for ruptured ectopic, which was found to have been adherent to part of the sigmoid colon and had partially eroded it. Resection of the involved tube was performed and 1200ml of blood was evacuated. Patient was transferred to critical care floor and is being closely followed. (Debbie Jensen MD R1) Review of Systems ROS Limitations: Unresponsive (Debbie Jensen MD R1) Past Family Social History Past Medical History Asthma Bipolar Disorder Depression HTN Diabetes 6 wks ectopic (LMP 04/25/17) Hx of Ectopic in 2008, followed by D&C Past Surgical History Section 2001 h/o right salpingectomy for ectopic - 12/2013 tubal ligation Reported Medications citalopram - 20 mg (Debbie Jensen MD R1) Allergies: Coded Allergies: carbamazepine (Unverified Allergy, Severe, anaphalactic, 06/13/17) *MDRO Multi-Drug Resistant Organism (Unverified Allergy, Unknown, 06/13/17 ) MRSA - groin wound 02/2014 ibuprofen (Unverified Adverse Reaction, Intermediate, ABD PAIN, DIARRHEA, 06/13/17) Family History Not able to assess Social History No alcohol use 5 cigarettes/week Smoked cocaine last month Marijuana use (Debbie Jensen MD R1) Physical Exam Vital Signs Vital Signs Date Time Temp Pulse Resp B/P (MAP) Pulse Ox O2 Delivery O2 Flow Rate FiO2 06/13/17 07:55 86 18 113/79 (90) 100 Room Air 06/13/17 06:30 97.9 94 16 131/73 (92) 97 Room Air Physical Exam GENERAL: This is a stuporous female lying supine in bed. SKIN: Cool and dry. HEAD: Atraumatic. Normocephalic. N EYES: Pupils constricted, slightly reactive to light ENT: deferred NECK: Trachea midline. CARDIOVASCULAR: Regular rate and rhythm without murmurs, gallops, or rubs. RESPIRATORY: Clear to auscultation. Breath sounds equal bilaterally. GASTROINTESTINAL: Abdomen soft, nondistended. Jumps in bed and shows gaurding upon moderate to deep palpation of her abdomen. MUSCULOSKELETAL: Extremities without edema. NEUROLOGICAL: Somnolent. Not responsive to peripheral stimuli. Does not follow commands. Laboratory Laboratory Tests Test 06/13/17 07:45 Troponin I LESS THAN 0.02 (Debbie Jensen MD R1) Imaging Last 24 hours Impressions Lung Scan Nuclear Medicine 06/13/17 0000 Signed Impressions: Service Date/Time: Tuesday, June 13, 2017 09:12 - CONCLUSION: Large perfusion defect involving the left mid to left lower lung characteristic for pulmonary embolism. Steven Elkins MD Per CTA 06/13/17 report CONCLUSION: 1. No evidence of pulmonary embolism. 2. Left basilar airspace disease accounting for abnormality seen on ventilation/ perfusion lung scan. 3. Mild cardiomegaly. (Debbie Jensen MD R1) Caprini VTE Risk Assessment Caprini VTE Risk Assessment: No/Low Risk (score <= 1) Caprini Risk Assessment Model Point Value = 1 Point Value = 2 Point Value = 3 Point Value = 5 Age 41-60 Minor surgery BMI > 25 kg/m2 Swollen legs Varicose veins or History of unexplained or recurrent spontaneous Oral contraceptives or hormone replacement Sepsis (< 1 month) Serious lung disease, including pneumonia (< 1 month) Abnormal pulmonary function Acute myocardial infarction Congestive heart failure (< 1 month) History of inflammatory bowel disease Medical patient at bed rest Age 61-74 Arthroscopic surgery Major open surgery (> 45 min) Laparoscopic surgery (> 45 min) Malignancy Confined to bed (> 72 hours) Immobilizing plaster cast Central venous access Age >= 75 History of VTE Family history of VTE Factor V Leiden Prothrombin [id number] Lupus anticoagulant Anticardiolipin antibodies Elevated serum homocysteine Heparin-induced thrombocytopenia Other congenital or acquired thrombophilia Stroke (< 1 month) Elective arthroplasty Hip, pelvis, or leg fracture Acute spinal cord injury (< 1 month) Prophylaxis Regimen Total Risk Factor Score Risk Level Prophylaxis Regimen 0-1 Low Early ambulation 2 Moderate Order ONE of the following: *Sequential Compression Device (SCD) *Heparin 5000 units SQ BID 3-4 Higher Order ONE of the following medications: *Heparin 5000 units SQ TID *Enoxaparin/Lovenox 40 mg SQ daily (WT < 150 kg, CrCl > 30 mL/min) *Enoxaparin/Lovenox 30 mg SQ daily (WT < 150 kg, CrCl > 10-29 mL/min) *Enoxaparin/Lovenox 30 mg SQ BID (WT < 150 kg, CrCl > 30 mL/min) AND/OR *Sequential Compression Device (SCD) 5 or more Highest Order ONE of the following medications: *Heparin 5000 units SQ TID (Preferred with Epidurals) *Enoxaparin/Lovenox 40 mg SQ daily (WT < 150 kg, CrCl > 30 mL/min) *Enoxaparin/Lovenox 30 mg SQ daily (WT < 150 kg, CrCl > 10-29 mL/min) *Enoxaparin/Lovenox 30 mg SQ BID (WT < 150 kg, CrCl > 30 mL/min) AND *Sequential Compression Device (SCD) (Debbie Jensen MD R1) Assessment and Plan Attending Attestation THIS CASE WAS DISCUSSED WITH THE RESIDENT PHYSICIANS. I HAVE REVIEWED THE RECORD AND AGREE WITH THE ABOVE NOTE AND PLAN OF CARE WAS DISCUSSED. I HAVE AUTHORIZED THE ORDER FOR ADMISSION TO AN IN-PATIENT STATUS. (Davida Quintana MD) Problem List: (1) Ectopic ICD Codes: O00.90 - Unspecified ectopic without intrauterine Status: Acute Plan: History of six-week with elevated Quant hCG. Patient in ICU. OR 06/13/17 for removal of ectopic and associated hemorrhage. Transferred to ICU. -Gynecology consulted -IV maintenance fluids -Monitoring hourly urine output via Sood -Daily CBC and CMP (2) Chest pain ICD Codes: R07.9 - Chest pain, unspecified Status: Acute Plan: Experiencing chest discomfort on admission. EKG shows T-wave inversions and LVH. No change in repeat echo -PE ruled out with V/Q, CTA (left basilar airspace disease noted), and lower extremity Dopplers -UDS positive for cocaine -Ordered echo to evaluate for cardiomyopathy secondary to long-term cocaine use -On cardiac telemetry -Monitor vitals (3) Bipolar disorder ICD Codes: F31.9 - Bipolar disorder, unspecified Plan: Possibly uncontrolled bipolar disorder,hx of leaving AMA, p -await psychiatry Recs (4) HTN (hypertension) ICD Codes: I10 - Essential (primary) hypertension Plan: 173/86 on admission -labetalol, hydralazine prn (5) FEN Plan: Fluids: IVF Diet: NPO DVT Prophy: none SW Dr. Macias (Debbie Jensen MD R1) Physician Certification 2 Midnight Certification Type: Admission for Inpatient Services Order for Inpatient Services The services are ordered in accordance with Medicare regulations or non- Medicare payer requirements, as applicable. In the case of services not specified as inpatient-only, they are appropriately provided as inpatient services in accordance with the 2-midnight benchmark. Estimated LOS (days): 2 2 days is the estimated time the patient will need to remain in the hospital, assuming treatment plan goals are met and no additional complications. Post-Hospital Plan: Home (Debbie Jensen MD R1) 2 Midnight Certification Type: Admission for Inpatient Services Post-Hospital Plan: Home (Davida Quintana MD) Problem Qualifiers (1) Ectopic : Qualified Codes: O00.90 - Unspecified ectopic without intrauterine (2) Chest pain: Qualified Codes: R07.9 - Chest pain, unspecified Debbie Jensen MD R1 Jun 13, 2017 08:56 Davida Quintana MD Jun 14, 2017 13:30
--- NOTE | 2017-06-13 09:05 | PD ---
HPI Chief Complaint Abdominal pain 1 week. chest pain 1 day, Positive test, Nil seen intrauterine on US Date Seen: Jun 13, 2017 Time Seen: 08:40 Travel History International Travel<30 Days: No Contact w/Intl Traveler<30Days: No Known Affected Area: No History of Present Illness HPI Pt is a 36 yo who presents to the ER at [facility], with c/ o 1 week h/o abdominal and chest pain. Pt gave LMP as 04-27-2017 making her 6 weeks and 5 days amenorrhea. Pt first presented to ER with same complaints 06-06-2017. She was noted to be but US showed nil intrauterine and Quant hCG was 2326. She was sent home and FU 06-08-2017 when Quant hCG was repeated and was 4992. US was not repeated. Pt returned last night with worsening abdominal and chest pain. Quant hCG was 6772. Pt also had pleuritic chest pain and some EKG changes concerning for PE or cardiomyopathy related to cocaine use. Pt has a h/o bipolar disorder and left ER and went home. Apparently patient walked home ( 45 minutes away), and had to be brought back here by the Police. US shows nil intrauterine, and significantly free fluid suspicious for hemorrhage. Right ovary was not visualized , but left ovary appeared wnl. Significantly pt has a h/o right salpingectomy for ectopic . She has a h/o hypertension, bipolar disorder, and has had C Section, tubal ligation.She has a h/o crack cocaine use, stating she last used a month ago. Pt apparently was disruptive and paranoid and was given Zyprexa to calm her out and is currently unable to give a history. History was obtained from . History Past Medical History Narrative Medical Hypertension, Bipolar disorder Obstetric History Obstetric History Pt has a 15 yo son, delivered by C Section; [place] [facility] [place] D&C Past Surgical History Narrative Surgical C section, Tubal ligation, D&C, Right salpingectomy Family History Family History: family h/o diabetes and hypertension. Social History Alcohol Use: Yes Tobacco Use: Yes (3cigarettes per day) Substance Abuse: Yes (marijuana, crack cocaine use.) Allergies-Medications (Allergen,Severity, Reaction): Coded Allergies: carbamazepine (Unverified Allergy, Severe, anaphalactic, 06/13/17) *MDRO Multi-Drug Resistant Organism (Unverified Allergy, Unknown, 06/13/17 ) MRSA - groin wound 02/2014 ibuprofen (Unverified Adverse Reaction, Intermediate, ABD PAIN, DIARRHEA, 06/13/17) Home Meds Reported Medications Albuterol 6.7 GM Inh (Proventil Hfa 6.7 GM Inh) 90 Mcg/Act Aer, 2 PUFF INH Q4- 6H Y for SHORTNESS OF BREATH, #1 INHALER 0 Refills 06/08/17 Lisinopril (Lisinopril) 10 Mg Tab, 10 MG PO DAILY, #30 TAB 0 Refills 06/08/17 Discontinued Scripts Lisinopril 10 mg (Lisinopril 10 mg) 10 Mg Tab, 1 TAB PO DAILY for 30 Days, TAB Prov:Marilyn Dang MD 01/04/16 Albuterol Sulfate (Proventil Hfa) 6.7 Gm Aero, 2 PUFF INH Q4H Y for WHEEZING, # 1 BOX * SHAKE WELL BEFORE USE * Prov:Marilyn Dang MD 01/04/16 Albuterol Sulfate (Proventil Hfa) 6.7 Gm Aero, 2 PUFF INH Q4H Y for WHEEZING, # 1 INHALER 1 Refill * SHAKE WELL BEFORE USE * Prov:JOVANNY MARTINEZ M.D. 06/25/14 Review of Systems Except as stated in HPI: all other systems reviewed are Neg Physical Exam Vital Signs Date Time Temp Pulse Resp B/P (MAP) Pulse Ox O2 Delivery O2 Flow Rate FiO2 06/13/17 07:55 86 18 113/79 (90) 100 Room Air 06/13/17 06:30 97.9 94 16 131/73 (92) 97 Room Air Narrative GENERAL: Well-nourished, well-developed patient. SKIN: Warm and dry. HEAD: Normocephalic and atraumatic. EYES: No scleral icterus. No injection or drainage. ENT: No nasal drainage noted. Mucous membranes pink. Airway patent. NECK: Supple, trachea midline. No JVD. CARDIOVASCULAR: Regular rate and rhythm without murmurs, gallops, or rubs. RESPIRATORY: Breath sounds equal bilaterally. No accessory muscle use. BREASTS: Bilateral exam showed no masses , no retractions, no nipple discharge. ABDOMEN/GI: Abdomen soft, tender low abdomen, no guarding, bowel sounds present , no rebound, no guarding EXTREMITIES: No cyanosis or edema. BACK: Nontender without obvious deformity. No CVA tenderness. NEUROLOGICAL: Awake and alert. Motor and sensory grossly within normal limits. Five out of 5 muscle strength in all muscle groups. Normal speech. Data Data Vital Signs Reviewed: Yes Orders Orders Troponin I (06/13/17 07:13) Ventilation & Perfusion Scan (06/13/17 ) Olanzapine Odt (Zyprexa Zydis Odt) (06/13/17 07:30) Electrocardiogram (06/13/17 02:07) Admit Order (Ed Use Only) (06/13/17 08:39) Labs Laboratory Tests Test 06/13/17 07:45 Troponin I LESS THAN 0.02 MDM Medical Record Reviewed: Yes Plan 36 yo presenting with 6 weeks amenorrhea, positive test, abdominal pain and chest pain and nil seen intrauterine on ultrasound with free fluid in pelvis. Pt has had suboptimal Quant hCG rise between 06-08-2017 and 06-13-2017 from 4992 to 6772. Hg is 9.2 g/dL and vitals are stable wnl. Pt has h/o right sided ectopic, Picture suggests ruptured ectopic . Pt is currently unable to allow exam or give consent and is stable. I have suggested , being currently hemodynamically stable, for the PE to be ruled out, and allow pt recover from her sedation. She is having a V/Q scan done and we will follow after. She will need laparoscopy. Diagnosis Diagnosis: Primary Impression: Ectopic Qualified Codes: O00.90 - Unspecified ectopic without intrauterine Additional Impression: Chest pain Qualified Codes: R07.9 - Chest pain, unspecified Khris Reyes MD Jun 13, 2017 09:05
--- NOTE | 2017-06-13 10:11 | RADRPT ---
EXAM DATE/TIME: 06/13/2017 09:12 [facility] COMPARISON: CHEST SINGLE AP, June 13, 2017, 3:33. INDICATIONS : Chest and abdominal pain. DOSE: 1.1 mCi Tc99m Labeled MAA IV MEDICAL HISTORY : Hypertension. SURGICAL HISTORY : Tubal ligation. ENCOUNTER: Initial ACUITY: 1 week PAIN SCALE: 3/10 LOCATION: chest TECHNIQUE: The patient was injected with MAA, and eight-view perfusion scan was performed. FINDINGS: PERFUSION: There is homogeneous uptake of tracer activity throughout the right lung. However there is a large pe rfusion defect involving the left mid and left lower lung characteristic for pulmonary embolism. The findings were called by telephone to the attending ENTERPRISE ARCHITECT MANAGER physician. CONCLUSION: Large perfusion defect involving the left mid to left lower lung characteristic for pulmonary embolis shayla Elkins MD on June 13, 2017 at 10:06 Board Certified Radiologist. This report was verified electronically.
[2017-06-13] MEDS ORDERED: ACETAMINOPHEN 325 MG TAB PO PRN ×2 (10:30→14:30)
--- NOTE | 2017-06-13 10:36 | HHI.PR ---
Objective Vital Signs Date Time Temp Pulse Resp B/P (MAP) Pulse Ox O2 Delivery O2 Flow Rate FiO2 06/13/17 07:55 86 18 113/79 (90) 100 Room Air 06/13/17 06:30 97.9 94 16 131/73 (92) 97 Room Air Assessment and Plan Assessment and Plan 1. Ruptured ectopic . She has a history of ectopic I have reviewed the ultrasound personally she has quite a bit of blood in her posterior cul-de- sac she has an acute abdomen with rebound even though she is quite drowsy from the medication before. She needs to have operative intervention he is not a candidate for methotrexate. 2. Pulmonary embolism. Her VQ scan is positive for pulmonary embolism she needs to be anticoagulated however I would do this postop she also needs Doppler studies of her lower extremities to find the source of her pulmonary emboli. I would not use PCDs this lady in case this is the source of her PE. We will obtain this postoperatively and also anticoagulate her. She has been admitted to the resident service and I will follow her closely. 3. History of cocaine abuse. I have ordered a urine drug screen but that has not been accomplished yet. I have also informed anesthesia about this patient in terms of her pulmonary embolism her abnormal EKG and cocaine abuse. Discussed Condition With I have discussed this with the patient however she is quite drowsy from Zyprexa she was given earlier. I called the and talked with him and told her about the risk of surgery and the possibility that she may suffer a fatal pulmonary embolus during surgery. Again she is not a candidate for methotrexate therapy because I do believe this is ruptured because she has rebound tenderness and quite a bit of blood in the cul-de-sac. Victorina Duran MD Jun 13, 2017 10:35
[2017-06-13 11:27] LABS: APTT (PATIENT) 28.4 SEC (24.3-30.1); INTERNATIONAL NORMALIZED RATIO 0.9 RATIO; PROTHROMBIN TIME - PATIENT 10.3 SEC (9.8-11.6)
[2017-06-13] MEDS ORDERED: PROPOFOL 200 MG/20 ML AMP IV ONE (12:00)
[2017-06-13] MEDS ORDERED: ROCURONIUM INJ 50 MG/5 ML SYRINGE IV PUSH ONE (12:00)
[2017-06-13] MEDS ORDERED: SUCCINYLCHOLINE CHLORIDE 100 MG/5 ML SYRINGE IV PUSH ONE (12:00)
[2017-06-13] MEDS ORDERED: ceFAZolin INJ 1,000 MG VIAL IV ONE (12:00)
[2017-06-13] MEDS ORDERED: NORMOSOL R INJ 2,000 ML IV ONE (12:00)
[2017-06-13] MEDS ORDERED: PHENYLEPH/NS 1000 MCG/10 ML SYR IV ONE (12:00)
[2017-06-13] MEDS ORDERED: ePHEDrine/NS 25 MG/5 ML SYR IV ONE (12:00)
[2017-06-13] MEDS ORDERED: MIDAZOLAM HCL 2 MG/2 ML VIAL IV ONE (12:00)
[2017-06-13] MEDS ORDERED: LIDOCAINE HCL 1% PF 5 ML AMPULE OTHER ONE (12:00)
[2017-06-13] MEDS ORDERED: DEXAMETHASONE SOD PHOS 4 MG/ML VIAL IV ONE (12:00)
[2017-06-13] MEDS ORDERED: ONDANSETRON HCL 4 MG/2 ML VIAL IV PUSH ONE (12:00)
--- NOTE | 2017-06-13 12:12 | EKG ---
Date Performed: 06/13/2017 Time Performed: 08:41:35 PTAGE: 36 years EKG: Sinus rhythm POSSIBLE LEFT ATRIAL ENLARGEMENT POSSIBLE LEFT VENTRICULAR HYPERTROPHY Nonspecific ST and T wave abn ormalities ABNORMAL ECG No significant change from prior electrocardiogram. PREVIOUS TRACING : 06/13/2017 02.07 DOCTOR: Gui Garland Interpretating Date/Time 06/13/2017 12:10:44
[2017-06-13 12:28] LABS: AUTOMATED NEUTROPHIL # 2.8 TH/MM3 (1.8-7.7); BASOPHIL % 0.4 % (0.0-2.0); EOSINOPHIL % 0.6 % (0.0-4.0); LYMPH % 15.8 % (9.0-44.0); LYMPHOCYTE # 0.6 TH/MM3 (1.0-4.8); MEAN CELL VOLUME 87.5 FL (80.0-100.0); MEAN CORPUSCULAR HEMOGLOBIN 29.4 PG (27.0-34.0); MEAN CORPUSCULAR HGB CONC 33.6 % (32.0-36.0); MONO % 10.5 % (0.0-8.0); NEUT % 72.7 % (16.0-70.0); PLATELET COUNT 173 TH/MM3 (150-450); RED BLOOD COUNT 2.27 MIL/MM3 (4.00-5.30); RED CELL DISTRIBUTION WIDTH 12.4 % (11.6-17.2); WHITE BLOOD COUNT 3.8 TH/MM3 (4.0-11.0)
[2017-06-13 12:30] LABS: HEMO FLAGS DIFF FINAL
[2017-06-13 12:32] LABS: HEMATOCRIT 19.9 % (35.0-46.0)
[2017-06-13] MEDS ORDERED: SUGAMMADEX SODIUM 200 MG/2 ML VIAL IV PUSH ONE ×2 (12:42)
[2017-06-13 13:41] LABS: AUTOMATED NEUTROPHIL # 5.9 TH/MM3 (1.8-7.7); BASOPHIL % 0.2 % (0.0-2.0); EOSINOPHIL % 0.1 % (0.0-4.0); HEMATOCRIT 24.9 % (35.0-46.0); HEMO FLAGS DIFF FINAL; LYMPH % 9.3 % (9.0-44.0); LYMPHOCYTE # 0.6 TH/MM3 (1.0-4.8); MEAN CELL VOLUME 85.9 FL (80.0-100.0); MEAN CORPUSCULAR HEMOGLOBIN 28.6 PG (27.0-34.0); MEAN CORPUSCULAR HGB CONC 33.2 % (32.0-36.0); MONO % 4.4 % (0.0-8.0); PLATELET COUNT 181 TH/MM3 (150-450); RED CELL DISTRIBUTION WIDTH 14.5 % (11.6-17.2); WHITE BLOOD COUNT 6.8 TH/MM3 (4.0-11.0)
[2017-06-13] MEDS ORDERED: LACTATED RINGER'S 1000 ML INJ 1,000 ML IV SCH (13:42)
[2017-06-13] MEDS ORDERED: SODIUM CHLORIDE 0.9% FLUSH 10 ML FLUSH IV FLUSH PRN (13:45)
[2017-06-13] MEDS ORDERED: MAGNESIUM HYDROXIDE SUSP 30 ML CUP PO PRN (13:45)
[2017-06-13] MEDS ORDERED: MORPHINE SULFATE 30 MG/30 ML PCA IV SCH (13:45)
[2017-06-13] MEDS ORDERED: CHLORHEXIDINE GLUCONATE 2 % 1 PACK (2 CLOTHS) TOP PRN ×2 (13:45→14:30)
[2017-06-13] MEDS ORDERED: SENNOSIDES 8.6 MG TAB PO PRN (13:45)
[2017-06-13] MEDS ORDERED: ONDANSETRON HCL 4 MG/2 ML VIAL IV PUSH PRN (13:45)
[2017-06-13] MEDS ORDERED: LORazepam 2 MG/ML VIAL IV PUSH PRN (13:45)
[2017-06-13] MEDS ORDERED: NALOXONE HCL 0.4 MG/ML AMP IV PUSH PRN (13:45)
[2017-06-13] MEDS ORDERED: BISACODYL 10 MG SUPP RECTAL PRN (13:45)
[2017-06-13] MEDS ORDERED: LACTULOSE SYRUP 20 GM/30 ML CUP PO PRN (13:45)
[2017-06-13] MEDS ORDERED: MISCELLANEOUS NURSING INFORMATION XX SCH ×2 (13:45→14:30)
[2017-06-13] MEDS ORDERED: ALBUTEROL SULFATE 90 MCG/ACT HFA 8 GM INHALER INH PRN (13:45)
[2017-06-13] MEDS ORDERED: ZOLPIDEM TARTRATE 5 MG TAB PO PRN (13:45)
--- NOTE | 2017-06-13 13:49 | PD.OP ---
cc: Carrington Shine MD; Victorina Duran MD Operative Report Date of Surgery: Jun 13, 2017 Preoperative Diagnosis: (1) Ectopic Postoperative Diagnosis: (1) Ectopic Procedure: Diagnostic laparoscopy Rigid proctoscopy Anesthesia: GETA Surgeon: Carrington Shine Manager Medical Affairs(s): Declan MARX Operation and Findings: This is the dictation for an intraoperative consultation by Dr. Michael Duran. The patient had been taken to the operating room due to ruptured ectopic with severe anemia. She had undergone removal of the ectopic and hemoperitoneum with provision of hemostasis. It was noted during the operation that the ectopic had eroded into a portion of the sigmoid colon. Therefore I was called to further evaluate and treat if necessary. Please see Dr. Duran dictation for the full operative report. The patient was in Trendelenburg position with the 3 ports in the lower abdomen. There was a small amount of residual bloody fluid in the abdominal cavity. Hemostasis had been achieved in the pelvis. There was an area in the sigmoid colon where apparently the ectopic had been adherent and partially eroded into the side of the sigmoid colon. I carefully inspected this area. I occluded the proximal sigmoid colon and placed the rigid proctoscope through the anus after digital rectal exam. The rectum and lower sigmoid was insufflated with air and the pelvic cavity filled with normal saline. There was no leak from the sigmoid colon. I then returned to the operative field and again evaluated this area on the sigmoid colon using the suction-equipment operation instructor. I felt that the area if concern was at the border of the colon and the mesentery with some induration and inflammation of the fatty tissue but no injury to the colon itself. Therefore I recommended no further treatment for this lesion. Dr. Duran is completing the operation. Carrington Shine MD Jun 13, 2017 13:49
[2017-06-13] MEDS ORDERED: *LABETALOL HCL 100 MG/20 ML VIAL PERIprocedural Use ONLY ONE (14:15)
[2017-06-13] MEDS ORDERED: LABETALOL HCL 100 MG/20 ML VIAL IV PUSH PRN (14:30)
[2017-06-13] MEDS ORDERED: RESP: ALBUTEROL 2.5 MG/IPRATROPIUM 0.5 MG NEB (PRN) INH (14:30)
--- NOTE | 2017-06-13 14:53 | PD.CONS ---
HPI Service Critical Care Medicine Consult Requested By HYDROTREATER OPERATOR Service Reason for Consult Severe hemorrhage, pulmonary embolism Primary Care Physician Unknown History of Present Illness 36 y/o woman arrived with ectopic , acute hemorrhage and probable pulmonary embolism by V/Q scan. She underwent emergency resection of the involved tube and evacuation of about 1,200 ml blood. Colonoscopy was performed to inspect a section of bowel adhered to the tube. No leak from bowel was seen in the peritoneal cavity with insufflation through the scope. I have met her immediately postop in the PACU and discussed the case with Dr. Duran in person. Review of Systems ROS General / Constitutional: No: Fever Eyes: No: Visual changes HENT: No: Headaches Cardiovascular: Positive: Chest Pain or Discomfort Respiratory: No: Shortness of Breath Gastrointestinal: Positive: Abdominal Pain Genitourinary: No: Dysuria Musculoskeletal: No: Pain Skin: No Rash Neurologic: No: Weakness Psychiatric: No: Depression Endocrine: No: Polydipsia Hematologic/Lymphatic: No: Easy Bruising Past Family Social History Allergies: Coded Allergies: carbamazepine (Unverified Allergy, Severe, anaphalactic, 06/13/17) *MDRO Multi-Drug Resistant Organism (Unverified Allergy, Unknown, 06/13/17 ) MRSA - groin wound 02/2014 ibuprofen (Unverified Adverse Reaction, Intermediate, ABD PAIN, DIARRHEA, 06/13/17) Past Medical History Past Medical History Asthma: Yes Blood Disorders: No Bipolar Disorder: Yes Depression: Yes Heart Rhythm Problems: No Cancer: No Cardiovascular Problems: Yes (htn) High Cholesterol: No Chemotherapy: No Chest Pain: No Congestive Heart Failure: No COPD: No Cerebrovascular Accident: Yes Diabetes: Yes Patient Takes Glucophage: No Diminished Hearing: No Endocrine: No Gastrointestinal Disorders: No Genitourinary: No Hypertension: Yes Immune Disorder: No Implanted Vascular Access Dvce: No Insomnia: Yes Musculoskeletal: No Neurologic: No Psychiatric: No Reproductive: No Respiratory: No Immunizations Current: No Radiation Therapy: No Sleep Apnea: No Thyroid Disease: No ?: : 3 Para: 1 Miscarriage: 2 Ectopic : Yes (2008) Dilation and Curettage (D&C): Yes Tubal Ligation: Yes Past Surgical History Section: Yes (2001) Gynecologic Surgery: Yes (salpingo-oopherectomy from ectopic ) Other Surgery: Yes (ectopic ) Social History Alcohol Use: Yes Tobacco Use: Yes (RECENTLY STOPPED) Substance Use: Yes (COCAINE-SMOKE LAST MONTH, MARIJUANA) Allergies-Medications Allergies-Medications (Allergen,Severity, Reaction): Coded Allergies: carbamazepine (Unverified Allergy, Severe, anaphalactic, 06/13/17) *MDRO Multi-Drug Resistant Organism (Unverified Allergy, Unknown, 06/13/17 ) MRSA - groin wound 02/2014 ibuprofen (Unverified Adverse Reaction, Intermediate, ABD PAIN, DIARRHEA, 06/13/17) Reported Meds & Prescriptions Reported Meds & Active Scripts Active Reported Proventil Hfa 6.7 GM Inh (Albuterol Sulfate) 90 Mcg/Act Aer 2 Puff INH Q4-6H PRN Lisinopril 10 Mg Tab 10 Mg PO DAILY ROS Review of Systems Physical Exam Vital Signs Vital Signs Date Time Temp Pulse Resp B/P (MAP) Pulse Ox O2 Delivery O2 Flow Rate FiO2 06/13/17 10:57 99 Nasal Cannula 2.00 06/13/17 10:42 98.9 73 18 93/53 (66) 99 Nasal Cannula 2.00 06/13/17 07:55 86 18 113/79 (90) 100 Room Air 06/13/17 06:30 97.9 94 16 131/73 (92) 97 Room Air Physical Exam P 92, BP 162/88, R 14, sats 100% Head: Normal. Neck: Supple, airway widely patent. No stridor. Lungs: Clear, no adventitious sounds. Heart: NL S1S2, no JVD. Abdomen: Post surgical, quiet. Nondistended. Extremities: Tepid, well perfused. Neuro: Lethargic s/p anesthetic. Moves 4 limbs to command. MANI. Laboratory Laboratory Tests Test 06/13/17 07:45 06/13/17 11:10 06/13/17 12:02 06/13/17 13:14 Prothrombin Time 10.3 Prothromb Time International Ratio 0.9 Activated Partial Thromboplast Time 28.4 Troponin I LESS THAN 0.02 Urine Opiates Screen NEG Urine Barbiturates Screen NEG Urine Amphetamines Screen NEG Urine Benzodiazepines Screen NEG Urine Cocaine Screen POS Urine Cannabinoids Screen POS White Blood Count 3.8 6.8 Red Blood Count 2.27 2.90 Hemoglobin 6.7 8.3 Hematocrit 19.9 24.9 Mean Corpuscular Volume 87.5 85.9 Mean Corpuscular Hemoglobin 29.4 28.6 Mean Corpuscular Hemoglobin Concent 33.6 33.2 Red Cell Distribution Width 12.4 14.5 Platelet Count 173 181 Mean Platelet Volume 8.6 8.5 Neutrophils (%) (Auto) 72.7 86.0 Lymphocytes (%) (Auto) 15.8 9.3 Monocytes (%) (Auto) 10.5 4.4 Eosinophils (%) (Auto) 0.6 0.1 Basophils (%) (Auto) 0.4 0.2 Neutrophils # (Auto) 2.8 5.9 Lymphocytes # (Auto) 0.6 0.6 Monocytes # (Auto) 0.4 0.3 Eosinophils # (Auto) 0.0 0.0 Basophils # (Auto) 0.0 0.0 CBC Comment DIFF FINAL DIFF FINAL Differential Comment Result Diagram: 06/13/17 1314 Assessment and Plan Assessment and Plan Assessment: 1. Ruptured ectopic . 2. Severe hemorrhage, intra-abdominal. 3. Possible Pulmonary Embolism. 4. Cocaine abuse, recent. 5. Noncompliance, chronic. Plan: 1. Stat Creatinine. 2. Stat CTA chest for PE if creatinine is normal. 3. Maint iv fluid. 4. Hourly urine output requiring Sood. 5. NPO until re-examined by general surgery. 6. Protonix. 7. Hold anticoagulation unless PE confirmed by CTA. 8. Serial Hgb. Overall impression: Critically ill following ruptured ectopic with significant hemorrhage. Need to confirm PE noted on V/Q scan before considering heparin. Follow closely in [facility]. Critical care 43 mins Francisco Allred MD Jun 13, 2017 14:53
[2017-06-13] MEDS ORDERED: DO NOT ADM ANY ANTICOAGULANT DRUGS PRN (15:31)
[2017-06-13] MEDS: hydrALAZINE HCL 20 MG/ML VIAL IV PUSH PRN (15:33)
[2017-06-13 15:55] LABS: APTT (PATIENT) 30.6 SEC (24.3-30.1)
[2017-06-13 16:26] LABS: ALKALINE PHOSPHATASE 58 U/L (45-117); ALT (GPT) 14 U/L (10-53); ANION GAP 7 MEQ/L (5-15); AST (GOT) 18 U/L (15-37); BICARBONATE 23.8 MEQ/L (21.0-32.0); BLOOD UREA NITROGEN 13 MG/DL (7-18); CALCIUM-PROTEIN CORRECTED 7.5 MG/DL (8.5-10.1); CHLORIDE 105 MEQ/L (98-107); GLOMERULAR FILTRATION RATE 98 ML/MIN (>89); MAGNESIUM 2.1 MG/DL (1.5-2.5); POTASSIUM 3.7 MEQ/L (3.5-5.1); SODIUM (NA) 136 MEQ/L (136-145); TOTAL BILIRUBIN ADULT 0.8 MG/DL (0.2-1.0)
[2017-06-13] MEDS ORDERED: IOHEXOL 350 MG/ML 10 ML VIAL (for RAD DIAG) IVCONTRAST ONE (18:33)
--- NOTE | 2017-06-13 18:53 | RADRPT ---
EXAM DATE/TIME: 06/13/2017 18:27 [facility] COMPARISON: LUNG SCAN - PERFUSION, June 13, 2017, 9:12. INDICATIONS : Abnormal nuclear medicine scan. IV CONTRAST: 71 cc Omnipaque 350 (iohexol) IV RADIATION DOSE: 9.16 CTDIvol (mGy) MEDICAL HISTORY : Stroke. Hypertension. diabetes SURGICAL HISTORY : Tubal ligation. ectopic surgery ENCOUNTER: Initial ACUITY: 1 day PAIN SCALE: 0/10 LOCATION: Bilateral chest TECHNIQUE: Volumetric scanning of the chest was performed using a pulmonary embolism protocol MIP images were re constructed. Using automated exposure control and adjustment of the mA and/or kV according to patien t size, radiation dose was kept as low as reasonably achievable to obtain optimal diagnostic quality images. DICOM format image data is available electronically for review and comparison. Follow-up recommendations for detected pulmonary nodules are based at a minimum on nodule size and pa tient risk factors according to Fleischner Society Guidelines. FINDINGS: PULMONARY ARTERIES: No filling defects are seen in the pulmonary arteries through the segmental level. LUNGS: Pleural-based airspace disease is identified in the left lung base. PLEURAE: There is no pleural thickening or pleural effusion. MEDIASTINUM: Heart is mildly enlarged. There is good visualization of the great vessels of the middle mediastinum. No evidence of mediastinal or hilar adenopathy/mass. MUSCULOSKELETAL: Within normal limits for patient age. MISCELLANEOUS: The visualized upper abdominal organs demonstrate no acute abnormality. CONCLUSION: 1. No evidence of pulmonary embolism. 2. Left basilar airspace disease accounting for abnormality seen on ventilation/perfusion lung scan. 3. Mild cardiomegaly. Shan Rojo MD on June 13, 2017 at 18:47 Board Certified Radiologist. This report was verified electronically.
--- NOTE | 2017-06-13 20:34 | RADRPT ---
EXAM DATE/TIME: 06/13/2017 19:56 [facility] COMPARISON: No previous studies available for comparison. INDICATIONS : Leg pain. MEDICAL HISTORY : . Hypertension. Ectopic . Cerebrovascular accident.Diabetes. Crack, cocaine abuse. SURGICAL HISTORY : section. Tubal ligation. Dilation and curettage. Salpingo-ooperectomy. ENCOUNTER: Initial ACUITY: 1 day PAIN SCORE: Non-responsive LOCATION: Bilateral legs. TECHNIQUE: Venous ultrasound of the left and right leg was performed from the inguinal ligament to the proximal calf. Real-time, color Doppler and spectral tracing, compression and augmentation techniques were us ed. FINDINGS: RIGHT LEG: There is normal compressibility of the deep venous system from the inguinal region to the proximal ca lf. No echogenic clot is seen in the lumen of the common femoral, femoral, popliteal, and posterior tibial veins. There is a normal response of the venous system to proximal and distal augmentation an d respiration. LEFT LEG: There is normal compressibility of the deep venous system from the inguinal region to the proximal ca lf. No echogenic clot is seen in the lumen of the common femoral, femoral, popliteal, and posterior tibial veins. There is a normal response of the venous system to proximal and distal augmentation an d respiration. CONCLUSION: No evidence of DVT. Shan Rojo MD on June 13, 2017 at 20:32 Board Certified Radiologist. This report was verified electronically.
[2017-06-13] MEDS: SODIUM CHLORIDE 0.9% FLUSH 10 ML FLUSH IV FLUSH SCH (21:00)
[2017-06-13] MEDS: DOCUSATE SODIUM 50 MG/SENNA 8.6 MG TAB PO SCH (21:24)
[2017-06-13] MEDS: PCA - TOTAL MG MORPHINE DELIVERED PER SHIFT SCH (22:00)
[2017-06-13] MEDS: NS + KCL 20 MEQ INJ 1,000 ML IV SCH (23:56)
[2017-06-14] VITALS (15 sets, daily range): BP systolic 123–159; BP diastolic 58–81; PULSE 80–107; RESP 16–24; TEMP 97.9–99.2; O2SAT 96–100
[2017-06-14] MEDS: CHLORHEXIDINE GLUCONATE 2 % 1 PACK (2 CLOTHS) TOP SCH (04:00)
[2017-06-14] MEDS ORDERED: CHLORHEXIDINE GLUCONATE 2 % 1 PACK (2 CLOTHS) TOP SCH (04:00)
[2017-06-14 05:20] LABS: AUTOMATED NEUTROPHIL # 4.2 TH/MM3 (1.8-7.7); BASOPHIL % 0.5 % (0.0-2.0); EOSINOPHIL % 0.7 % (0.0-4.0); HEMATOCRIT 23.2 % (35.0-46.0); HEMO FLAGS DIFF FINAL; MEAN CELL VOLUME 84.9 FL (80.0-100.0); MEAN CORPUSCULAR HEMOGLOBIN 28.6 PG (27.0-34.0); MEAN CORPUSCULAR HGB CONC 33.7 % (32.0-36.0); MONO % 9.2 % (0.0-8.0); NEUT % 71.6 % (16.0-70.0); PLATELET COUNT 180 TH/MM3 (150-450); RED BLOOD COUNT 2.73 MIL/MM3 (4.00-5.30); RED CELL DISTRIBUTION WIDTH 15.4 % (11.6-17.2); WHITE BLOOD COUNT 5.8 TH/MM3 (4.0-11.0)
[2017-06-14 05:55] LABS: BICARBONATE 22.3 MEQ/L (21.0-32.0); CALCIUM-PROTEIN CORRECTED 7.8 MG/DL (8.5-10.1); POTASSIUM 3.7 MEQ/L (3.5-5.1); TOTAL BILIRUBIN ADULT 0.7 MG/DL (0.2-1.0)
[2017-06-14] MEDS: PCA - TOTAL MG MORPHINE DELIVERED PER SHIFT SCH ×3 (06:00→22:09)
--- NOTE | 2017-06-14 07:02 | HHI.CCPN ---
Subjective Remarks/Hospital Course 36 y/o woman arrived with ectopic , acute hemorrhage and probable pulmonary embolism by V/Q scan. She underwent emergency resection of the involved tube and evacuation of about 1,200 ml blood. Colonoscopy was performed to inspect a section of bowel adhered to the tube. No leak from bowel was seen in the peritoneal cavity with insufflation through the scope. I have met her immediately postop in the PACU and discussed the case with Dr. Duran in person. 06/14: Urine output excellent. Creatinine 0.7, Hgb 7.8. Well perfused. No signs of bleeding. No PE on CTA chest. Objective Vital Signs Date Time Temp Pulse Resp B/P (MAP) Pulse Ox O2 Delivery O2 Flow Rate FiO2 06/14/17 06:00 86 06/14/17 04:00 99.0 18 139/67 (91) 100 06/13/17 21:18 Nasal Cannula 2.00 Intake and Output 06/14/17 06/14/17 06/15/17 08:00 16:00 00:00 Intake Total 1101 ml Output Total 750 ml Balance 351 ml Result Diagram: 06/14/17 0504 06/14/17 0504 Objective Remarks P 84, BP 132/78, R 12, sats 100% Head: Normal. Neck: Supple, airway widely patent. No stridor. Lungs: Clear, no adventitious sounds. Normal excursions. Heart: NL S1S2, no JVD. Abdomen: Post surgical, quiet. Nondistended. Extremities: Tepid, well perfused. Neuro: Alert.. Moves 4 limbs to command. MANI. A/P Assessment and Plan Assessment: 1. Ruptured ectopic . 2. Severe hemorrhage, intra-abdominal. 4. Cocaine abuse, recent. 5. Noncompliance, chronic. Plan: 1. Stat Creatinine. 2. Stat CTA chest for PE if creatinine is normal -> done 3. Maint iv fluid. 4. Hourly urine output requiring Sood. 5. NPO until re-examined by general surgery. 6. Protonix. 7. Hold anticoagulation unless PE confirmed by CTA -> no PE. 8. Serial Hgb. Overall impression: Was critically ill following ruptured ectopic with significant hemorrhage. No PE. Stable hemodynamics, transfer. Francisco Allred MD Jun 14, 2017 07:02
[2017-06-14] MEDS ORDERED: LISINOPRIL 10 MG TAB PO SCH (09:00)
[2017-06-14] MEDS: SODIUM CHLORIDE 0.9% FLUSH 10 ML FLUSH IV FLUSH SCH ×2 (09:12→21:00)
[2017-06-14] MEDS: PANTOPRAZOLE SODIUM 40 MG VIAL IV PUSH SCH (09:12)
[2017-06-14] MEDS: DOCUSATE SODIUM 50 MG/SENNA 8.6 MG TAB PO SCH ×2 (09:12→21:46)
[2017-06-14] MEDS: HEPARIN SODIUM - SQ 10,000 UNITS/ML VIAL SQ SCH ×2 (09:14→17:59)
[2017-06-14] MEDS: NS + KCL 20 MEQ INJ 1,000 ML IV SCH ×2 (09:15→21:44)
--- NOTE | 2017-06-14 09:36 | MP ---
cc: DANII DURAN DATE OF SURGERY June 13, 2017 PREOPERATIVE DIAGNOSES 1. Ruptured ectopic . 2. Hematoperitoneum. 3. Pulmonary embolus. POSTOPERATIVE DIAGNOSES 1. Ruptured ectopic . 2. Hematoperitoneum. 3. Pulmonary embolus. 4. Pelvic adhesions. 5. Bowel injury due to the ectopic growing into the bowel. PROCEDURE Dilation and curettage of the uterus, a laparoscopic exam with enterolysis of adhesions and left salpingectomy. Dr. Shine performed proctosigmoidoscopy and a laparoscopic exam to inspect the bowel. SURGEON Victorina Duran MD [employer]PERINTENDENT HOUSE Carrington Shine MD FINDINGS On examination under anesthesia the vagina was clean. The cervix was clean, without lesions. The uterus felt normal size, shape and consistency. The adnexa felt negative for masses. The D&C revealed a small amount of the tissue. The laparoscopic exam revealed a huge hematoperitoneum with approximately 1500 cc of blood. The uterus was normal except that it had adhesions of the fundus to the large bowel around the ectopic. The left tube had an isthmic ectopic that was ruptured and not bleeding. The omentum had covered it. The remainder of that tube was normal in length and caliber. It was right approximated to the uterus. The right tube was absent. Both ovaries were normal. The posterior cul-de-sac was normal. There were some very dense adhesions of the large bowel to the fundus of the uterus which were taken down. There was a large bowel injury that appeared to eat through at least the serosa and possibly the mucosa approximately 2 [address] x [address] Shine came in and did proctosigmoidoscopy. There was no air was a laparoscopic visualization. COMPLICATIONS The ectopic grew into the large bowel and required a general surgeon to evaluate that. ESTIMATED BLOOD LOSS She had a least a 1500 cc hematoperitoneum, 50 cc of blood loss during the surgery. COUNTS Correct. CONDITION The patient tolerated the procedure well and went to the recovery room in good condition. She will be going to the intensive care unit for careful monitoring, follow up of the pulmonary embolus and Dopplers of her lower extremities. PROCEDURE IN DETAIL The patient was taken to the operating room, identified by name band and verbally given a general anesthetic. I had to get consent from her and told her him that it was a very dangerous surgery with the pulmonary embolus and a ruptured ectopic. After explaining the risks and benefits to the , he consented for her as she has was not able to consent. Time-out was taken. The patient was prepped and draped in the usual sterile fashion for a laparoscopic vaginal surgery and examination under anesthesia was carried out after the Sood catheter had been inserted. A speculum was placed in the vagina. The anterior lip of the cervix was grasped with single-tooth tenaculum. The cervix was easily dilated the entire endometrium carefully curetted and sent for pathologic evaluation. A small subumbilical incision was made and with a 5-mm trocar the abdomen was entered under direct vision and a pneumoperitoneum was created with 3 liters of CO2. A second port was placed inferior lateral to the umbilicus on the right and on the left a 10-mm port was placed. The ectopic was visualized and there was a large amount of peritoneum. The first order of business was to remove the blood so I could see the ectopic . We got over 1000 cc's of blood just by removing it. There was still some blood in there so we estimated probably 1500 or more hematoperitoneum. The omentum was adhesed to the ectopic and this was gently taken off with the harmonic scalpel. The ectopic began bleeding some and it was abutting the uterus. We took the fallopian tube down with the harmonic scalpel. The bleeding here was where we lost all our blood. Kleppinger forceps were used to make that area hemostatic. We then took down the entire tube from the mesosalpinx using the harmonic scalpel. This was removed. Next was to take down the large bowel from the fundus of the uterus. It seemed that this was all matted together with the ectopic . It seemed that there was some damage to that bowel. Therefore I wanted to take those adhesions down. This took quite some time because the adhesions were quite thick and I wanted to avoid any further bowel injuries. I called general surgeon Dr. Carrington Shine in to assist and evaluate the bowel more carefully and he will dictate that portion of the note. At the end he inspected the bowel very carefully, did not think it went through the mucosa, then did proctosigmoidoscopy. We filled up the pelvis with water and we did not see any bubbles indicating that the bowel was indeed intact. Once this had been accomplished, he left the room and we irrigated the pelvis and abdomen with a large amount of fluids. She did not require several units of blood in the operating theater. At this point we reinspected all surgical sites. There was no bleeding whatsoever. Everything was perfectly hemostatic. We wanted to ensure this since there was a good chance that she was going to get fully anticoagulated in the next several hours. Once this had been accomplished, the laparoscope was removed under direct vision. The fascia was repaired with a 2-0 Vicryl in interrupted fashion and the port inferior lateral to the umbilicus was used to remove all the air. The skin was then repaired with a 4-0 Monocryl in a subcuticular manner and dressings were applied. The instrument was removed from the vagina and she was taken to the recovery room in good condition. We took great care during the positioning not to touch her calves. R. Danii Duran MD RJV/JALEESA /8:52 AM /9:06 AM
--- NOTE | 2017-06-14 13:52 | ECHRPT ---
Indication: Chest Pain CONCLUSIONS The left ventricular systolic function is normal with an estimated ejection fraction in the range of 60-65%. Normal left ventricular size. Moderate concentric left ventricular hypertrophy. No regional wall motion abnormalities are present. Moderate thickening of the mitral valve leaflets. Trace mitral valve regurgitation. There is mild to moderate tricuspid valve regurgitation. The estimated pulmonary arterial pressure is 55.3 mmHg. BP: 139 / 67 HR: 88 Rhythm: Sinus MEASUREMENTS (Male / Female) Normal Values Technical Quality:Good 2D ECHO LV Diastolic Diameter PLAX 3.7 cm 4.2 - 5.9 / 3.9 - 5.3 cm LV Systolic Diameter PLAX 2.4 cm IVS Diastolic Thickness 1.6 cm 0.6 - 1.0 / 0.6 - 0.9 cm LVPW Diastolic Thickness 1.6 cm 0.6 - 1.0 / 0.6 - 0.9 cm LV Relative Wall Thickness 0.9 RV Internal Dim ED PLAX 2.8 cm LVOT Diameter 2.0 cm LA Systolic Diameter LX 3.3 cm 3.0 - 4.0 / 2.7 - 3.8 cm LV Ejection Fraction MOD 4C 72.1 % LV Cardiac Index MOD 4C 3962.8 cm/minm LV Ejection Fraction 4C AL 74.2 % LV Cardiac Index 4C AL 4239.2 cm/minm M-MODE Aortic Root Diameter MM 2.3 cm LA Systolic Diameter MM 3.5 cm LA Ao Ratio MM 1.5 AV Cusp Separation MM 1.8 cm DOPPLER AV Peak Velocity 200.0 cm/s AV Peak Gradient 16.0 mmHg LVOT Peak Velocity 126.0 cm/s LVOT Peak Gradient 6.4 mmHg AV Area Cont Eq pk 2.0 cm MV Peak Velocity 136.0 cm/s MV Peak Gradient 7.4 mmHg MV Mean Velocity 81.9 cm/s MV Mean Gradient 3.0 mmHg MV Area PHT 3.4 cm Mitral E Point Velocity 107.0 cm/s Mitral A Point Velocity 60.2 cm/s Mitral E to A Ratio 1.8 LV E' Lateral Velocity 8.0 cm/s Mitral E to LV E' Lateral Ratio 13.4 LV E' Septal Velocity 8.8 cm/s Mitral E to LV E' Septal Ratio 12.2 TR Peak Velocity 336.5 cm/s TR Peak Gradient 45.3 mmHg Right Atrial Pressure 10.0 mmHg Pulmonary Artery Systolic Pressu 55.3 mmHg Right Ventricular Systolic Press 55.3 mmHg PV Peak Velocity 133.0 cm/s PV Peak Gradient 7.1 mmHg FINDINGS LEFT VENTRICLE The left ventricular systolic function is normal with an estimated ejection fraction in the range of 60-65%. Normal left ventricular size. Moderate concentric left ventricular hypertrophy. No regional wall motion abnormalities are present. RIGHT VENTRICLE Normal right ventricular size and systolic function. LEFT ATRIUM The left atrial size is normal. RIGHT ATRIUM The right atrial size is normal. ATRIAL SEPTUM Normal atrial septal thickness without atrial level shunting by limited color doppler interrogation. AORTA The aortic root and proximal ascending aorta are normal in size on limited imaging. MITRAL VALVE Moderate thickening of the mitral valve leaflets. Trace mitral valve regurgitation. AORTIC VALVE Trileaflet aortic valve. No aortic valve stenosis or regurgitation. TRICUSPID VALVE Structurally normal tricuspid valve. There is mild to moderate tricuspid valve regurgitation. The estimated pulmonary arterial pressure is 55.3 mmHg. PULMONARY VALVE No pulmonary valve regurgitation or stenosis. VESSELS The inferior vena cava is normal in size. PERICARDIUM No pericardial effusion. Eliot Hernández MD (Electronically Signed) Final Date:14 June 2017 13:51
--- NOTE | 2017-06-14 13:55 | HHI.FPPN ---
Problem Problem List: (1) Ruptured left tubal ectopic causing hemoperitoneum (2) Bipolar disorder (3) HTN (hypertension) (4) Cocaine abuse (5) EKG abnormalities Subjective Subjective 36 y/o patient with a hx of cocaine use and bipolar disorder with one week of abdominal pain and chest discomfort. Patient was somnolent and unable to provide hx at time of interview for the admitting team after receiving zyprexa in the ED for agitation. Patient was diagnosed in the ED with probably ectopic with hemorrhage and rupture. [facility]US[facility] WARP was consulted and Dr. Duran took the patient for laparoscopy. During this procedure it was found to be adherent to the sigmoid colon. Surgery was completed and patient was critically ill and transferred to the ICU. Overnight her hemodynamic status has stablized. At the time of the interview the patient is resting comfortably , states her pain has improved and she is overall feeling much better. No BM, + flatus, no SOB, no CP, slight cough Admission EKG showed t-wave inversions and possible LVH, VQ scan showed left sided perfusion defect which was consistent with PE but ultimately CTA of the lung showed no evidence of PE but basilar airspace disease. 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 Echo is pending. Review of Systems ROS: neg except as above Past Family Social History Past Medical History Asthma Bipolar Disorder Depression HTN Diabetes 6 wks ectopic (LMP 04/25/17) Hx of Ectopic in 2008, followed by D&C Past Surgical History Section 2001 h/o right salpingectomy for ectopic - 12/2013 tubal ligation Reported Medications citalopram - 20 mg, Patient is unsure of her meds or dosing Allergies: Coded Allergies: carbamazepine (Unverified Allergy, Severe, anaphalactic, 06/13/17) *MDRO Multi-Drug Resistant Organism (Unverified Allergy, Unknown, 06/13/17 ) MRSA - groin wound 02/2014 ibuprofen (Unverified Adverse Reaction, Intermediate, ABD PAIN, DIARRHEA, 06/13/17) Family History NC Social History No alcohol use 5 cigarettes/week +cocaine, marijuana Hospital Objective Objective Laboratory Tests - Abnormals Test 06/13/17 13:57 06/13/17 19:41 06/14/17 00:46 06/14/17 05:04 Activated Partial Thromboplast Time 30.6 SEC Fibrinogen 531 mg/dL Random Glucose 131 MG/DL Albumin 3.1 GM/DL 2.5 GM/DL Calcium Level 7.3 MG/DL 7.3 MG/DL Protein Corrected Calcium 7.5 MG/DL 7.8 MG/DL Troponin I LESS THAN 0.02 NG/ML LESS THAN 0.02 NG/ML Red Blood Count 2.73 MIL/MM3 Hemoglobin 7.8 GM/DL Hematocrit 23.2 % Neutrophils (%) (Auto) 71.6 % Monocytes (%) (Auto) 9.2 % Total Protein 6.1 GM/DL Chloride Level 111 MEQ/L Vital Signs 06/13/17 06/13/17 06/13/17 06/13/17 13:51 14:00 14:15 14:30 Temp 98.0 Pulse 102 84 78 72 Resp 16 16 16 16 B/P (MAP) 173/86 (115) 169/74 (105) 172/82 (112) 173/88 (116) Pulse Ox 100 100 100 100 O2 Delivery Nasal Cannula Nasal Cannula Nasal Cannula Nasal Cannula O2 Flow Rate 3 3 3 3 06/13/17 06/13/17 06/13/17 06/13/17 14:45 15:00 16:00 18:00 Temp 98.4 Pulse 88 99 108 103 Resp 16 B/P (MAP) 156/78 (104) 127/60 (82) Pulse Ox 100 100 O2 Delivery Nasal Cannula O2 Flow Rate 3 06/13/17 06/13/17 06/13/17 06/13/17 18:00 19:00 20:00 20:00 Temp 98.7 Pulse 103 94 94 Resp 22 B/P (MAP) 123/56 (78) Pulse Ox 100 22 O2 Delivery Room Air 06/13/17 06/13/17 06/14/17 06/14/17 21:18 22:00 00:00 00:00 Temp 98.7 Pulse 96 98 98 Resp 20 B/P (MAP) 123/58 (79) Pulse Ox 96 100 O2 Delivery Nasal Cannula O2 Flow Rate 2.00 06/14/17 06/14/17 06/14/17 06/14/17 02:00 04:00 04:00 06:00 Temp 99.0 Pulse 98 88 88 86 Resp 18 B/P (MAP) 139/67 (91) Pulse Ox 100 06/14/17 06/14/17 06/14/1706/14/17 07:00 07:25 08:00 08:00 Temp 98.7 Pulse 82 82 Resp 16 B/P (MAP) 124/73 (90) Pulse Ox 100 100 100 O2 Delivery Room Air FiO2 21 06/14/17 06/14/17 06/14/17 10:00 12:00 12:00 Temp 98.9 Pulse 82 82 82 Resp 24 B/P (MAP) 159/71 (100) Pulse Ox 100 Physical exam O. CONSTITUTIONAL/GEN: normally nourished, in NAD. EYES: conjunctiva normal, PERRLA, EOMI. ENT: Mouth and pharynx normal. NECK: thyroid midline, carotids symmetrical. LUNGS: clear A-P, respiratory effort is normal, scattered crackles CARDIOVASCULAR: RR without murmur or gallop. No significant edema. GI/ABD: soft without masses, without organomegaly, no rebound, bowel sounds present, nondistended : no CVA tenderness NEURO: No focal deficits SKIN: color normal, no rashes noted. HEME/LYMPH: no bruising, petechia or significant adenopathy MUSC: back is normal in appearance. Extremities are normal in appearance. PSYCH/MENTAL STATUS: Alert and oriented x 3. Assessment Assessment: (1) Ruptured left tubal ectopic causing hemoperitoneum Plan: Patient is Post-op and appears to be recovering well. She does have a persistent anemia and 1200ml were evacuated during the surgery. 1. 2units PRBCS have been ordered -- will treant the H/H after administration 2. Incentive spirometer ordered 3. Currently NPO with + flatus -- diet advancement per the surgical team. 4. Patient is now hemodynamically stable - transfer to a regular floor. 5. Pain control per the surgical team (2) Bipolar disorder Plan: this appears to be stable on her home meds. Will attempt to get the home meds with dosages from the and continue her home medications (3) HTN (hypertension) Plan: Continue her home NEELIMA inhibitor for now -- will adjust if needed cover with PRN meds in the postop period (4) Cocaine abuse Plan: at this time UDS positive for cocaine and marijuana - no h/o ETOH abuse - - will monitor closely (5) EKG abnormalities Plan: due to the h/o the cocaine use -- will monitor and check echo (6) FEN Plan: 1. GI - pantoprazole 2. DVT - heparin 3. Fluids -- currently on NS with KCL at 100ml/hr -- once tolerating PO and a diet will dc fluids. Assessment 36 y/o woman with ruptured left tubal ectopic with hemoperitoneum that is recovering after laparoscopy. Underlying history of bipolar, HTN and drug abuse which appear to be stable. PLAN PLAN plan as above - patient was seen and dw the resident team - Dr. Macias, Dr. Jensen, Dr. Tammy Quintana,Davida Higginbotham MD Jun 14, 2017 13:55
--- NOTE | 2017-06-14 16:57 | RADRPT ---
EXAM DATE/TIME: 06/14/2017 17:23 [facility] COMPARISON: CHEST SINGLE AP, June 13, 2017, 3:33. INDICATIONS : Cough. MEDICAL HISTORY : Stroke. Hypertension. diabetes SURGICAL HISTORY : Tubal ligation. ectopic surgery ENCOUNTER: Initial ACUITY: 1 day PAIN SCORE: 0/10 LOCATION: Bilateral chest FINDINGS: A single view of the chest demonstrates the lungs to be symmetrically aerated without evidence of mas s, infiltrate or effusion. The cardiomediastinal contours are unremarkable. Osseous structures are intact. CONCLUSION: No acute disease. Sung Rubio Jr., MD on June 14, 2017 at 16:55 Board Certified Radiologist. This report was verified electronically.
--- NOTE | 2017-06-14 17:57 | HHI.PR ---
Subjective Remarks Doing well, I have been passing gas Pain is well controlled. I want to get up Objective Vital Signs Date Time Temp Pulse Resp B/P (MAP) Pulse Ox O2 Delivery O2 Flow Rate FiO2 06/14/17 17:06 98.4 81 20 143/81 100 06/14/17 16:17 97.9 80 17 137/70 100 06/14/17 16:00 98.8 84 20 137/70 (92) 100 06/14/17 16:00 84 06/14/17 15:40 98.8 84 20 137/70 100 06/14/17 14:00 18 06/14/17 12:00 82 06/14/17 12:00 98.9 82 24 159/71 (100) 100 06/14/17 10:00 82 06/14/17 08:00 98.7 82 16 124/73 (90) 100 06/14/17 08:00 82 06/14/17 07:25 100 21 06/14/17 07:00 100 Room Air 06/14/17 06:00 86 06/14/17 04:00 99.0 88 18 139/67 (91) 100 06/14/17 04:00 88 06/14/17 02:00 98 06/14/17 00:00 98 06/14/17 00:00 98.7 98 20 123/58 (79) 100 06/13/17 22:00 96 06/13/17 21:18 96 Nasal Cannula 2.00 06/13/17 20:00 94 06/13/17 20:00 98.7 94 22 123/56 (78) 22 06/13/17 19:00 100 Room Air 06/13/17 18:00 103 06/13/17 18:00 98.4 103 16 127/60 (82) 100 I/O 06/13/17 06/13/17 06/13/17 06/14/17 06/14/17 06/14/17 07:00 15:00 23:00 07:00 15:00 23:00 Intake Total 3170 ml 296 ml 1101 ml 957 ml Output Total 1635 ml 650 ml 750 ml 550 ml Balance 1535 ml -354 ml 351 ml 407 ml Intake Oral 50 ml IV Total 296 ml 1051 ml 547 ml Packed Cells 400 ml 400 ml Blood Product IV Normal Saline Flush 20 ml 10 ml Other 2750 ml Output Urine Total 135 ml 650 ml 750 ml 550 ml Estimated Blood Loss 1500 ml # Bowel Movements 0 # Sanitary Pads 1 Pads 3 Pads 0 Pads 0 Pads 0 Pads 0 Pads 0 Pads Result Diagram: 06/14/17 0504 06/14/17 0504 Other Results Sitting comfortable in chair Chest is clear CV RRR Abd is soft, good BS incisions are clean and dry Ext no CCE Assessment and Plan Assessment and Plan 1. POD #1 2. No pulmonary embolus on CTA. Reviewed films with radiologist 3. Severe anemia consider transfusion 4. Cocaine abuse she has bipolar and is self medicating 5. Poor nutritional status 6. Bowel injury would not feed for a couple more days per surgery. Victorina Duran MD Jun 14, 2017 17:57
--- NOTE | 2017-06-14 22:56 | EKG ---
Date Performed: 06/13/2017 Time Performed: 16:54:00 PTAGE: 36 years EKG: SINUS TACHYCARDIA LEFT VENTRICULAR HYPERTROPHY AND ST-T CHANGE ABNORMAL ECG PREVIOUS TRACING : 06/13/2017 08.41 Compared to prior tracing no significant change DOCTOR: Luis Sellers Interpretating Date/Time 06/14/2017 22:49:57
[2017-06-15] VITALS (9 sets, daily range): BP systolic 142–182; BP diastolic 66–97; PULSE 80–105; RESP 16–20; TEMP 97.5–99.4; O2SAT 96–100
[2017-06-15] MEDS: HEPARIN SODIUM - SQ 10,000 UNITS/ML VIAL SQ SCH ×3 (03:32→16:32)
[2017-06-15] MEDS: CHLORHEXIDINE GLUCONATE 2 % 1 PACK (2 CLOTHS) TOP SCH (04:00)
[2017-06-15] MEDS: NS + KCL 20 MEQ INJ 1,000 ML IV SCH ×2 (06:00→16:31)
[2017-06-15] MEDS: PCA - TOTAL MG MORPHINE DELIVERED PER SHIFT SCH ×3 (06:01→22:40)
[2017-06-15 08:21] LABS: AUTOMATED NEUTROPHIL # 6.3 TH/MM3 (1.8-7.7); BASOPHIL % 0.3 % (0.0-2.0); EOSINOPHIL # 0.2 TH/MM3 (0-0.4); EOSINOPHIL % 2.3 % (0.0-4.0); HEMATOCRIT 25.3 % (35.0-46.0); HEMO FLAGS DIFF FINAL; LYMPH % 13.1 % (9.0-44.0); LYMPHOCYTE # 1.1 TH/MM3 (1.0-4.8); MEAN CELL VOLUME 83.9 FL (80.0-100.0); MEAN CORPUSCULAR HEMOGLOBIN 28.2 PG (27.0-34.0); MEAN CORPUSCULAR HGB CONC 33.6 % (32.0-36.0); MONO % 6.5 % (0.0-8.0); NEUT % 77.8 % (16.0-70.0); PLATELET COUNT 192 TH/MM3 (150-450); RED BLOOD COUNT 3.01 MIL/MM3 (4.00-5.30); RED CELL DISTRIBUTION WIDTH 14.5 % (11.6-17.2); WHITE BLOOD COUNT 8.1 TH/MM3 (4.0-11.0)
[2017-06-15 08:49] LABS: BICARBONATE 21.1 MEQ/L (21.0-32.0); POTASSIUM 3.8 MEQ/L (3.5-5.1)
[2017-06-15] MEDS: SODIUM CHLORIDE 0.9% FLUSH 10 ML FLUSH IV FLUSH SCH ×2 (08:54→21:00)
[2017-06-15] MEDS: PANTOPRAZOLE SODIUM 40 MG VIAL IV PUSH SCH (08:54)
[2017-06-15] MEDS: DOCUSATE SODIUM 50 MG/SENNA 8.6 MG TAB PO SCH ×2 (08:54→21:00)
--- NOTE | 2017-06-15 13:08 | HHI.FPPN ---
Subjective Remarks POD #2 for removal of ectopic . Patient says that she is doing well. Eating and drinking appropriately. Afebrile overnight. Blood pressure 140s-160s/ 70s-80s. Denies nausea, vomiting, chest pain, shortness of breath. Passing gas. Minimal vaginal bleeding post surgery. (Debbie Jensen MD R1) Objective Vitals Vital Signs Date Time Temp Pulse Resp B/P (MAP) Pulse Ox O2 Delivery O2 Flow Rate FiO2 06/15/17 12:00 97.7 80 20 143/81 (101) 97 06/15/17 09:15 99 06/15/17 09:15 Room Air 06/15/17 08:00 98.0 95 20 162/77 (105) 96 06/15/17 06:01 18 06/15/17 05:45 99.0 101 18 148/66 (93) 97 06/15/17 01:33 99.4 105 16 142/68 (92) 96 06/14/17 22:09 20 06/14/17 20:45 94 06/14/17 20:40 99.2 107 16 151/79 (103) 96 06/14/17 20:00 Room Air 06/14/17 18:59 97 21 06/14/17 18:19 Room Air 06/14/17 17:06 98.4 81 20 143/81 100 06/14/17 16:17 97.9 80 17 137/70 100 06/14/17 16:00 98.8 84 20 137/70 (92) 100 06/14/17 16:00 84 06/14/17 15:40 98.8 84 20 137/70 100 06/14/17 14:00 18 I/O 06/14/17 06/14/17 06/14/17 06/15/17 06/15/17 06/15/17 07:00 15:00 23:00 07:00 15:00 23:00 Intake Total 1101 ml 957 ml 1720 ml Output Total 750 ml 550 ml 700 ml Balance 351 ml 407 ml 1020 ml Intake Oral 50 ml 720 ml IV Total 1051 ml 547 ml 1000 ml Packed Cells 400 ml Blood Product IV Normal Saline Flush 10 ml Output Urine Total 750 ml 550 ml 700 ml # Bowel Movements 0 1 # Sanitary Pads 3 Pads 0 Pads 0 Pads 0 Pads 0 Pads 0 Pads (Debbie Jensen MD R1) Result Diagram: 06/15/1772906/15/17729 Objective Remarks . CONSTITUTIONAL/GEN: normally nourished, in NAD. EYES: conjunctiva normal, EOMI. LUNGS: Wheezing and crackles heard bilaterally on exam, respiratory effort is normal CARDIOVASCULAR: RR without murmur or gallop. No significant edema. GI/ABD: soft without masses, without organomegaly. Suprapubic tenderness on palpation. NEURO: No focal deficits HEME/LYMPH: no bruising, petechia MUSC: Extremities are normal in appearance. PSYCH/MENTAL STATUS: Alert and oriented x 3. (Debbie Jensen MD R1) A/P Assessment and Plan Patient is a 36-year-old female postoperative day number S/P laparoscopy to ruptured ectopic and hemoperitoneum. Patient was initially transferred to ICU postoperatively for monitoring. Was transferred 2 units PRBCs. On medical floor. Hemodynamically stable. CT had admission showed left basilar airspace disease. Will discuss findings with radiology. Discharge Planning Discharge pending medical stability and Cellar [employer] recs. (Debbie Jensen MD R1) Attending Attestation Patient seen and examined. Case reviewed and discussed with the resident team. Agree with plan of care as discussed with me and documented in the resident note. (Davida Quintana MD) Problem List: (1) Ectopic ICD Codes: O00.90 - Unspecified ectopic without intrauterine Status: Acute Plan: History of six-week with elevated Quant hCG. Patient in ICU. OR 06/13/17 for removal of ectopic and associated hemorrhage. Transferred to ICU. -Gynecology consulted -IV maintenance fluids -D/C Sood -Daily CBC and CMP (2) Suprapubic abdominal pain ICD Codes: R10.2 - Pelvic and perineal pain Plan: Was on a Sood for 2 days, Sood removed today Patient endorses increased suprapubic tenderness on physical exam -Order UA (3) Asthma ICD Codes: J45.909 - Unspecified asthma, uncomplicated Plan: Increased wheezing and crackles heard on lung exam, patient has not been completing incentive spirometry -06/15 Chest x-ray negative for acute disease -Incentive spirometry -Albuterol inhaler when necessary (4) HTN (hypertension) ICD Codes: I10 - Essential (primary) hypertension Plan: - lisinopril 10 mg PO daily -labetalol, hydralazine prn (5) Chest pain ICD Codes: R07.9 - Chest pain, unspecified Status: Resolved Plan: Experiencing chest discomfort on admission. EKG shows T-wave inversions and LVH. No change in repeat echo -CTA 06/13 showed basilar airspace disease (6) FEN Plan: Fluids: IVF 100mls/hr Diet: Reg diet DVT Prophy: Heparin GI prophy: Protonix (Debbie Jensen MD R1) Problem Qualifiers (1) Ectopic : Qualified Codes: O00.90 - Unspecified ectopic without intrauterine (2) Chest pain: Qualified Codes: R07.9 - Chest pain, unspecified Debbie Jensen MD R1 Jun 15, 2017 13:08 Davida Quintana MD Jun 15, 2017 15:05
[2017-06-15 13:11] LABS: BLOOD, URINE NEG (NEG); GLUCOSE,URINE NEG (NEG); KETONE, URINE NEG (NEG); MUCUS URINE FEW /lpf (OCC); NITRITE,URINE NEG (NEG); SQUAMOUS EPITHELIAL CELL URINE <1 /hpf (0-5); URINE COLOR LIGHT-YELLOW (YELLW/STRAW)
[2017-06-15 13:12] LABS: COMMENT (UR) CATH-CULT NOT IND; CULTURE IF INDICATED CATH CULTURE NOT IND
--- NOTE | 2017-06-15 13:25 | HHI.PR ---
Subjective Remarks Doing well, Eating regular diet. Passing gas Pain is controlled Objective Vital Signs Date Time Temp Pulse Resp B/P (MAP) Pulse Ox O2 Delivery O2 Flow Rate FiO2 06/15/17 12:00 97.7 80 20 143/81 (101) 97 06/15/17 09:15 99 06/15/17 09:15 Room Air 06/15/17 08:00 98.0 95 20 162/77 (105) 96 06/15/17 06:01 18 06/15/17 05:45 99.0 101 18 148/66 (93) 97 06/15/17 01:33 99.4 105 16 142/68 (92) 96 06/14/17 22:09 20 06/14/17 20:45 94 06/14/17 20:40 99.2 107 16 151/79 (103) 96 06/14/17 20:00 Room Air 06/14/17 18:59 97 21 06/14/17 18:19 Room Air 06/14/17 17:06 98.4 81 20 143/81 100 06/14/17 16:17 97.9 80 17 137/70 100 06/14/17 16:00 98.8 84 20 137/70 (92) 100 06/14/17 16:00 84 06/14/17 15:40 98.8 84 20 137/70 100 06/14/17 14:00 18 I/O 06/14/17 06/14/17 06/14/17 06/15/17 06/15/17 06/15/17 07:00 15:00 23:00 07:00 15:00 23:00 Intake Total 1101 ml 957 ml 1720 ml Output Total 750 ml 550 ml 700 ml Balance 351 ml 407 ml 1020 ml Intake Oral 50 ml 720 ml IV Total 1051 ml 547 ml 1000 ml Packed Cells 400 ml Blood Product IV Normal Saline Flush 10 ml Output Urine Total 750 ml 550 ml 700 ml # Bowel Movements 0 1 # Sanitary Pads 3 Pads 0 Pads 0 Pads 0 Pads 0 Pads 0 Pads Result Diagram: 06/15/1772906/15/17729 Other Results chest is clear heart is RRR Abd is soft and non tender Inc healing well Ext no cce Assessment and Plan Assessment and Plan 1. POD #2 2. No pulmonary embolus on CTA. Reviewed films with radiologist 3. Severe anemia will order venofer 4. Cocaine abuse she has bipolar and is self medicating. will get social studies teacher consultation 5. Poor nutritional status 6. Bowel injury will watch for s/s of peritonitis Victorina Duran MD Jun 15, 2017 13:24
--- NOTE | 2017-06-15 15:39 | RADRPT ---
EXAM DATE/TIME: 06/15/2017 16:04 [facility] COMPARISON: CHEST SINGLE AP, June 14, 2017, 17:23. INDICATIONS : Short of breath. MEDICAL HISTORY : Stroke. Hypertension. diabetes SURGICAL HISTORY : Tubal ligation. ectopic surgery ENCOUNTER: Subsequent ACUITY: 1 week PAIN SCORE: 0/10 LOCATION: Bilateral chest FINDINGS: A single view of the chest demonstrates the lungs to be symmetrically aerated without evidence of mas s, infiltrate or effusion. The heart size is mildly prominent but stable.. Osseous structures are i ntact and stable. CONCLUSION: No acute disease. No significant change has occurred. Steven Elkins MD on June 15, 2017 at 15:37 Board Certified Radiologist. This report was verified electronically.
[2017-06-15] MEDS: LISINOPRIL 10 MG TAB PO SCH (16:31)
[2017-06-16] MEDS: hydrALAZINE HCL 20 MG/ML VIAL IV PUSH PRN (01:42)
[2017-06-16] MEDS: NS + KCL 20 MEQ INJ 1,000 ML IV SCH (01:50)
[2017-06-16] MEDS: CHLORHEXIDINE GLUCONATE 2 % 1 PACK (2 CLOTHS) TOP SCH (01:51)
[2017-06-16] MEDS: HEPARIN SODIUM - SQ 10,000 UNITS/ML VIAL SQ SCH ×2 (01:51→08:48)
[2017-06-16 02:30] VITALS: BP 186/91
[2017-06-16 04:34] VITALS: BP 147/78; PULSE 90; RESP 16; TEMP 98; O2SAT 97
[2017-06-16] MEDS: PCA - TOTAL MG MORPHINE DELIVERED PER SHIFT SCH (06:17)
[2017-06-16 08:00] VITALS: BP 164/93; PULSE 85; RESP 20; TEMP 99; O2SAT 99
[2017-06-16 08:48] LABS: HEMATOCRIT 27.9 % (35.0-46.0); MEAN CELL VOLUME 84.6 FL (80.0-100.0); MEAN CORPUSCULAR HGB CONC 33.1 % (32.0-36.0); PLATELET COUNT 235 TH/MM3 (150-450); RED BLOOD COUNT 3.29 MIL/MM3 (4.00-5.30); RED CELL DISTRIBUTION WIDTH 14.4 % (11.6-17.2); WHITE BLOOD COUNT 9.3 TH/MM3 (4.0-11.0)
[2017-06-16] MEDS: DOCUSATE SODIUM 50 MG/SENNA 8.6 MG TAB PO SCH (08:48)
[2017-06-16] MEDS: LISINOPRIL 10 MG TAB PO SCH (08:48)
[2017-06-16] MEDS: SODIUM CHLORIDE 0.9% FLUSH 10 ML FLUSH IV FLUSH SCH (08:48)
[2017-06-16] MEDS: PANTOPRAZOLE SODIUM 40 MG VIAL IV PUSH SCH (08:48)
[2017-06-16 08:58] VITALS: PULSE 81
[2017-06-16] MEDS ORDERED: IRON SUCROSE INJ 200 MG in SODIUM CHLORIDE 0.9% INJ 100 ML IV SCH (09:00)
[2017-06-16 09:12] LABS: REVIEW FLAG FINAL
--- NOTE | 2017-06-16 09:41 | HHI.PR ---
Subjective Remarks Doing well, Eating regular diet with no significant problems Passing gas, Good BM Pain is controlled, still on SENIOR NET ARCHITECT No SOB, CP, Chest pressure Voiding well, When can I go home, I need all my medicines refilled Objective Vital Signs Date Time Temp Pulse Resp B/P (MAP) Pulse Ox O2 Delivery O2 Flow Rate FiO2 06/16/17 06:17 18 06/16/17 04:34 98.0 90 16 147/78 (101) 97 06/16/17 02:30 186/91 (122) 06/15/17 23:44 99.2 85 16 182/97 (125) 100 06/15/17 22:40 20 06/15/17 22:05 21 06/15/17 20:08 98.5 83 16 158/74 (102) 99 06/15/17 20:00 88 06/15/17 20:00 Room Air 06/15/17 16:00 97.5 92 18 160/88 (112) 96 06/15/17 12:00 97.7 80 20 143/81 (101) 97 I/O 06/15/17 06/15/17 06/15/17 06/16/17 06/16/17 06/16/17 07:00 15:00 23:00 07:00 15:00 23:00 Intake Total 1720 ml 1961 ml 1083 ml Output Total 700 ml 2000 ml 2650 ml Balance 1020 ml -39 ml -1567 ml Intake Oral 720 ml 960 ml 600 ml IV Total 1000 ml 1001 ml 483 ml Output Urine Total 700 ml 2000 ml 2650 ml # Bowel Movements 1 0 1 Result Diagram: 06/16/17 0735 06/15/17 0730 Other Results Chest is clear Heart RRR Abd is soft and non tender Incisions are healing nicely Ext No CCE Assessment and Plan Assessment and Plan 1. POD #3 2. No pulmonary embolus on CTA. No DVT will stop the heparin at this time 3. Severe anemia on venofer. Will check hematocrit in 1-2 weeks. Discussed cocaine use with the anemia and advised not to use cocaine 4. Cocaine abuse she has bipolar and is self medicating. will get geriatric social work professor consultation 5. Poor nutritional status 6. Bowel injury will watch for s/s of peritonitis Will d/c heparin and SENIOR NET ARCHITECT today. She is stable for d/c home from my standpoint. She needs all her meds refilled before d/c home Will see in one week in my office. Does not need any contraception..Both tubes are absent. Victorina Duran MD Jun 16, 2017 09:41
--- NOTE | 2017-06-16 09:46 | HHI.FPPN ---
Subjective Remarks No acute events overnight. Remains afebrile. BPs elevated ranging 140s-180s/70s- 90s over past 24 hours. RN reports patient has been ambulatory and that her pain has seemed well controlled only using her EMERGENCY GENERATOR MECHANIC twice overnight. Patient also states her pain is well controlled and she would like to be on oral medication. She requests her medications to be refilled before going home. She denies any fevers or chills, CP, SOB, cough, states she is ambulating well without issues and tolerating her diet without N/V. 4650 cc of UOP recorded. Passing gas and 1 BM noted. (Marcial Macias MD R2) Objective Vitals Vital Signs Date Time Temp Pulse Resp B/P (MAP) Pulse Ox O2 Delivery O2 Flow Rate FiO2 06/16/17 06:17 18 06/16/17 04:34 98.0 90 16 147/78 (101) 97 06/16/17 02:30 186/91 (122) 06/15/17 23:44 99.2 85 16 182/97 (125) 100 06/15/17 22:40 20 06/15/17 22:05 21 06/15/17 20:08 98.5 83 16 158/74 (102) 99 06/15/17 20:00 88 06/15/17 20:00 Room Air 06/15/17 16:00 97.5 92 18 160/88 (112) 96 06/15/17 12:00 97.7 80 20 143/81 (101) 97 I/O 06/15/17 06/15/17 06/15/17 06/16/17 06/16/17 06/16/17 07:00 15:00 23:00 07:00 15:00 23:00 Intake Total 1720 ml 1961 ml 1083 ml Output Total 700 ml 2000 ml 2650 ml Balance 1020 ml -39 ml -1567 ml Intake Oral 720 ml 960 ml 600 ml IV Total 1000 ml 1001 ml 483 ml Output Urine Total 700 ml 2000 ml 2650 ml # Bowel Movements 1 0 1 (Marcial Macias MD R2) Result Diagram: 06/16/17 0735 06/15/17 0730 Objective Remarks GEN: NAD. EYES: conjunctiva normal, EOMI. LUNGS: Faint basilar wheezing and crackles heard bilaterally on exam, respiratory effort is normal CARDIOVASCULAR: RRR without m/r/g. No edema. GI/ABD: soft, nondistended, without masses or organomegaly. Some suprapubic tenderness still present on palpation. NEURO: Alert. Normal speech. No gross focal deficits HEME/LYMPH: no bruising, petechia MUSC: Extremities are normal in appearance. (Marcial Macias MD R2) A/P Assessment and Plan Patient is a 36-year-old female postop day #3 s/p laparoscopy d/t ruptured ectopic and hemoperitoneum and enterolysis of adhesions. Patient was initially transferred to ICU postoperatively for monitoring and transfused 2 units PRBCs. Patient has been transferred out of ICU and is in stable status doing well postop. Discharge Planning Anticipate discharge home today Will arrange for outpatient f/u with Dr. Duran in one week (Marcial Macias MD R2) Attending Attestation Patient seen and examined. Case reviewed and discussed with the resident team. Agree with plan of care as discussed with me and documented in the resident note. (Davida Quintana MD) Problem List: (1) Ectopic ICD Codes: O00.90 - Unspecified ectopic without intrauterine Status: Acute Plan: History of six-week with elevated hCG on admission. s/p OR on 06/13/17 for removal of ectopic left salpingectomy, evacuation of hemoperitoneum, enterolysis of adhesions. -Gynecology consulted, Dr. Duran following, patient advised to f/u as outpatient in one week after discharge -Discontinue IVF -Sood removed, good UOP -Transition to oral pain control today -Tolerating regular diet (2) Suprapubic abdominal pain ICD Codes: R10.2 - Pelvic and perineal pain Status: Acute Plan: Some suprapubic tenderness still present on exam H/H is stable, UA clean Patient ambulating without issues and tolerating diet Will continue to monitor Advised close outpatient follow up with PCP and with Dr. Duran (3) Asthma ICD Codes: J45.909 - Unspecified asthma, uncomplicated Status: Chronic Plan: -06/15 Chest x-ray negative for acute disease obtained as patient having wheezing and faint bibasilar crackles likely atelectasis -Incentive spirometer to bedside -Duonebs q4h prn -Albuterol prn -Continue to monitor (4) HTN (hypertension) ICD Codes: I10 - Essential (primary) hypertension Status: Chronic Plan: -Will increase lisinopril to 20 mg daily -Continue labetalol, hydralazine prn while inpatient (5) Chest pain ICD Codes: R07.9 - Chest pain, unspecified Status: Resolved Plan: Experiencing chest discomfort on admission. EKG shows T-wave inversions and LVH. No change in repeat echo -CTA 06/13 showed no evidence of pulmonary embolism, left basilar airspace disease accounting for abnormality seen on V/Q scan (6) FEN Status: Acute Plan: Fluids: None Diet: Reg diet DVT ppx: Patient is ambulating well, anticipate discharge today GI ppx: Protonix (Marcial Macias MD R2) Problem Qualifiers (1) Chest pain: Qualified Codes: R07.9 - Chest pain, unspecified Marcial Macias MD R2 Jun 16, 2017 09:46 Davida Quintana MD Jun 16, 2017 14:21
[2017-06-16] MEDS ORDERED: oxyCODONE/ACETAMINOPHEN 5 MG/325 MG TAB PO PRN ×2 (10:00)
[2017-06-16 11:00] VITALS: O2SAT 99
[2017-06-16 12:00] VITALS: BP 167/86; PULSE 86; RESP 20; TEMP 99.4; O2SAT 98
[2017-06-16] MEDS ORDERED: OXYC1TAB63 PO (12:50)
[2017-06-16] MEDS ORDERED: SENN1TAB PO (13:18)
--- NOTE | 2017-06-16 13:19 | HHI.DCPOC ---
Discharge Care Plan Goals to Promote Your Health * To prevent worsening of your condition and complications, follow up with your primary care physician and Dr. Duran, your MACHINE HAND Hospitalist who performed your surgery at [facility] [place]. Directions to Meet Your Goals Take your medications as prescribed Follow your dietary instruction Follow activity as directed Keep your appointments as scheduled Take your immunizations and boosters as scheduled If your symptoms worsen call your PCP, if no PCP go to Urgent Care Center or Emergency Room Smoking is Dangerous to Your Health. Avoid second hand smoke Call the 24-hour hour crisis hotline for domestic abuse at Marcial Macias MD R2 Jun 16, 2017 13:19
[2017-06-16] MEDS ORDERED: FERR325T8 PO (13:20)
[2017-06-16] MEDS ORDERED: LISI10TA3 PO (15:02)
[2017-06-16] MEDS ORDERED: ALBU6.7H INH (15:02)
--- NOTE | 2017-06-16 16:33 | HHI.DS ---
Discharge Summary Admission Date Jun 13, 2017 at 14:08 Discharge Date: Jun 16, 2017 Admitting Diagnosis ectopic , chest pain (1) Ectopic Diagnosis: Principal Plan: History of six-week with elevated hCG on admission. s/p OR on 06/13/17 for removal of ectopic left salpingectomy, evacuation of hemoperitoneum, enterolysis of adhesions. -Gynecology consulted, Dr. Duran following, patient advised to f/u as outpatient in one week after discharge -Discontinue IVF -Sood removed, good UOP -Transition to oral pain control today -Tolerating regular diet ICD Codes: O00.90 - Unspecified ectopic without intrauterine Status: Acute (2) Suprapubic abdominal pain Diagnosis: Principal Plan: Some suprapubic tenderness still present on exam H/H is stable, UA clean Patient ambulating without issues and tolerating diet Will continue to monitor Advised close outpatient follow up with PCP and with Dr. Duran ICD Codes: R10.2 - Pelvic and perineal pain Status: Acute (3) Asthma Diagnosis: Secondary Plan: -06/15 Chest x-ray negative for acute disease obtained as patient having wheezing and faint bibasilar crackles likely atelectasis -Incentive spirometer to bedside -Duonebs q4h prn -Albuterol prn -Continue to monitor ICD Codes: J45.909 - Unspecified asthma, uncomplicated Status: Chronic (4) HTN (hypertension) Diagnosis: Secondary Plan: -Will increase lisinopril to 20 mg daily -Continue labetalol, hydralazine prn while inpatient ICD Codes: I10 - Essential (primary) hypertension Status: Chronic (5) Chest pain Diagnosis: Secondary Plan: Experiencing chest discomfort on admission. EKG shows T-wave inversions and LVH. No change in repeat echo -CTA 06/13 showed no evidence of pulmonary embolism, left basilar airspace disease accounting for abnormality seen on V/Q scan ICD Codes: R07.9 - Chest pain, unspecified Status: Resolved (6) FEN Diagnosis: Secondary Plan: Fluids: None Diet: Reg diet DVT ppx: Patient is ambulating well, anticipate discharge today GI ppx: Protonix Status: Acute Consultants AIRCRAFT SALES REPRESENTATIVE, critical care Procedures Transthoracic echocardiogram 06/14: Left ventricular systolic function normal with estimated ejection fraction in the range of 60-65%. Normal left ventricular size. Moderate concentric left ventricular hypertrophy. No regional wall motion abnormalities present. Moderate thickening of the mitral valve leaflets. Trace mitral valve regurgitation. Mild to moderate tricuspid valve regurgitation. Brief History Pt is a 36 y/o w/hx of cocaine use and bipolar disorder who presents to [place] ED with one week of abdominal pain and chest discomfort. Patient is somnolent and unable to provide hx at time of interview. Only rouses momentarily to pain. She was described as disruptive and manic on admission, so was given Zyprexa in the ED. Patient has been previously seen in the ED with similar complaints (06/06/2017). Quant hCG was 2326, + test, but U/S showed no intrauterine .She was sent home and returned on 06/08 where hcG doubled and d/c'd. Patient arrived at ED early this AM with increased quant hCG and similar abdominal pain. US in the ED showed free fluid in the posterior cul-de-sac suspicious for hemorrhage/ruptured ectopic. For her chest discomfort, EKG was performed, showed t-wave inversions and possible LVH raising concern for PE v recent cocaine use. V/Q scan was positive for PE. Patient underwent diagnostic laparoscopy today due to concern for ruptured ectopic, which was found to have been adherent to part of the sigmoid colon and had partially eroded it. Resection of the involved tube was performed and 1200ml of blood was evacuated. Patient was transferred to critical care floor and is being closely followed. CBC/BMP: 06/16/17 0735 06/15/17 0730 Significant Findings Laboratory Tests Test 06/13/17 19:41 06/14/17 00:46 06/14/17 05:04 06/15/17 07:30 Troponin I LESS THAN 0.02 NG/ML Red Blood Count 2.73 MIL/MM3 (4.00-5.30) 3.01 MIL/MM3 (4.00-5.30) Hemoglobin 7.8 GM/DL (11.6-15.3) 8.5 GM/DL (11.6-15.3) Hematocrit 23.2 % (35.0-46.0) 25.3 % (35.0-46.0) Neutrophils (%) (Auto) 71.6 % (16.0-70.0) 77.8 % (16.0-70.0) Monocytes (%) (Auto) 9.2 % (0.0-8.0) Total Protein 6.1 GM/DL (6.4-8.2) Albumin 2.5 GM/DL (3.4-5.0) Calcium Level 7.3 MG/DL (8.5-10.1) 8.1 MG/DL (8.5-10.1) Chloride Level 111 MEQ/L (98-107) 108 MEQ/L (98-107) Protein Corrected Calcium 7.8 MG/DL (8.5-10.1) Blood Urea Nitrogen 6 MG/DL (7-18) Test 06/15/17 12:19 06/16/17 07:35 06/16/17 12:17 Urine Mucus FEW /lpf (OCC) Red Blood Count 3.29 MIL/MM3 (4.00-5.30) Hemoglobin 9.2 GM/DL (11.6-15.3) Hematocrit 27.9 % (35.0-46.0) Imaging V/Q scan 06/13: Large perfusion defect involving the left mid to left lower lung characteristic for pulmonary embolism Lower extremity ultrasound 06/13: No evidence of DVT CT angiography 06/13: No evidence of pulmonary embolism. Left basilar airspace disease accounting for abnormality seen on V/Q lung scan. Mild cardiomegaly. Chest x-ray 06/14: No acute disease Chest x-ray 06/15: No acute disease PE at Discharge GEN: NAD. EYES: conjunctiva normal, EOMI. LUNGS: Faint basilar wheezing and crackles heard bilaterally on exam, respiratory effort is normal CARDIOVASCULAR: RRR without m/r/g. No edema. GI/ABD: soft, nondistended, without masses or organomegaly. Some suprapubic tenderness still present on palpation. NEURO: Alert. Normal speech. No gross focal deficits HEME/LYMPH: no bruising, petechia MUSC: Extremities are normal in appearance. Hospital Course AIRCRAFT SALES REPRESENTATIVE was consulted and discussed with patients to obtain consent for operative management given patient was not a candidate for methotrexate therapy. Patient went to OR on 06/13 and underwent removed of ectopic and evacuation of hemoperitoneum 1,200 mL of blood. General surgery was called into the OR to inspect a section of bowel that was adhered to the tube. No perforation was seen with rigid proctoscopy. Critical care was consulted to assist with management given the patient having a large hemoperitoneum and probable pulmonary embolus at that time. CT pulmonary angiogram was performed which showed no evidence of pulmonary embolus. Patient was monitored in the critical care unit in the postop period. She was transfused a total of 2 units packed red blood cells. Hemoglobin was 6.7 in the immediate postop period. Hemoglobin stable thereafter, 9.2 prior to discharge. Patient did well following the procedure. Pain was well-controlled. Ambulating without issues. Tolerated a regular diet. Transthoracic echocardiogram 06/14: Left ventricular systolic function normal with estimated ejection fraction in the range of 60-65%. Normal left ventricular size. Moderate concentric left ventricular hypertrophy. No regional wall motion abnormalities present. Moderate thickening of the mitral valve leaflets. Trace mitral valve regurgitation. Mild to moderate tricuspid valve regurgitation. Pt Condition on Discharge: Stable Discharge Disposition: Discharge Home Discharge Instructions DIET: Follow Instructions for: As Tolerated, No Restrictions Additional Diet Instructions: If you experience any abdominal pain, nausea, vomiting, or cannot tolerate your diet, call your doctor or OB doctor immediately to discuss your symptoms. Activities you can perform: Regular-No Restrictions Follow up Referrals: AIRCRAFT SALES REPRESENTATIVE - 1 Week @ [facility] PCP Follow-up - 1 Week New Orders: CBC WITH DIFF - 3-5 Days New Medications: Ferrous Sulfate (Ferrous Sulfate) 325 Mg (65 Mg Iron) Tablet 325 MG PO BIDPC for Nutritional Supplement, #60 TAB 0 Refills Oxycodone-Acetaminophen (Oxycodone-Acetaminophen) 5-325 mg Tab 1 TAB PO Q4H PRN for PAIN SCALE 6 TO 10, #28 TAB Sennosides-Docusate Sodium (Senna Plus 8.6-50 mg) 8.6 Mg-50 Mg Tab 1 TAB PO BID, #60 TAB Continued Medications: Albuterol 6.7 GM Inh (Proventil Hfa 6.7 GM Inh) 90 Mcg/Act Aer 2 PUFF INH Q4-6H PRN for SHORTNESS OF BREATH, #1 INHALER 0 Refills (This prescription has been renewed) Lisinopril (Lisinopril) 10 Mg Tab 10 MG PO DAILY, #30 TAB 0 Refills (This prescription has been renewed) Marcial Macias MD R2 Jun 16, 2017 16:33
== END 2017-06-16 15:27 | disposition home or self-care (01) | DRG 777 ==
LOC: NEPC 06:27 → NEDA 08:40 → INTOOBSV 08:40 → OBSVTOIN 14:08 → N03A 14:53 → N04B 06-14 17:34
PROVIDERS: ADMIT Family Medicine; ATTEND Family Medicine
PROC: 0DNW4ZZ Release Peritoneum, Percutaneous Endoscopic Approach (ICD-10-PCS; 2017-06-13)
PROC: 0UT6FZZ Resection of Left Fallopian Tube, Via Natural or Artificial Opening With Percutaneous Endoscopic Assistance (ICD-10-PCS; 2017-06-13)
PROC: 0DJD8ZZ Inspection of Lower Intestinal Tract, Via Natural or Artificial Opening Endoscopic (ICD-10-PCS; 2017-06-13)
PROC: 0UDB7ZZ Extraction of Endometrium, Via Natural or Artificial Opening (ICD-10-PCS; principal; 2017-06-13 11:08)
PROC: 10T24ZZ Resection of Products of Conception, Ectopic, Percutaneous Endoscopic Approach (ICD-10-PCS; 2017-06-13 11:08)
DX: O00.102 Left tubal pregnancy without intrauterine pregnancy (principal); I26.99 Other pulmonary embolism without acute cor pulmonale; K66.1 Hemoperitoneum; I10 Essential (primary) hypertension; E11.9 Type 2 diabetes mellitus without complications; D64.9 Anemia, unspecified; J98.11 Atelectasis; F14.10 Cocaine abuse, uncomplicated; I07.1 Rheumatic tricuspid insufficiency; J45.909 Unspecified asthma, uncomplicated; Z72.0 Tobacco use; F12.90 Cannabis use, unspecified, uncomplicated; F31.9 Bipolar disorder, unspecified; Z79.899 Other long term (current) drug therapy; Z86.73 Personal history of transient ischemic attack (TIA), and cerebral infarction without residual deficits; Z87.59 Personal history of other complications of pregnancy, childbirth and the puerperium; Z91.19 Patient's noncompliance with other medical treatment and regimen
CPT/HCPCS: 36430; 71010; 71275; 76700; 78580; 80048; 80053; 80307; 81001; 82948; 83690; 83735; 84100; 84443; 84484; 84702; 85025; 85027; 85384; 85610; 85730; 86850; 86900; 86901; 86920; 87641; 88305; 93005; 93306; 93970; 94150; 99285; A9540; C9113; J0330; J0360; J0690; J1100; J1644; J1756; J2250; J2370; J2405; J3010; J3480; P9016; Q9967

== ENCOUNTER 2017-06-18 15:10 | Emergency (ER) | payer OTHER ==
[~2017-06-18] VITALS: Ht 152.4 cm; Wt 75.0 kg
[~2017-06-18 15:10] MED LIST changes: +FERR325T8 PO; +OXYC1TAB63 PO; +SENN1TAB PO
[2017-06-18 15:11] VITALS: BP 177/103; PULSE 89; RESP 17; TEMP 98.2; O2SAT 97
[2017-06-18] MEDS ORDERED: SODIUM CHLORIDE 0.9% FLUSH 10 ML FLUSH IVF PRN (15:30)
[2017-06-18 16:08] LABS: AUTOMATED NEUTROPHIL # 6.6 TH/MM3 (1.8-7.7); BASOPHIL % 0.2 % (0.0-2.0); EOSINOPHIL # 0.2 TH/MM3 (0-0.4); EOSINOPHIL % 2.3 % (0.0-4.0); HEMATOCRIT 29.8 % (35.0-46.0); HEMO FLAGS DIFF FINAL; LYMPH % 9.8 % (9.0-44.0); LYMPHOCYTE # 0.8 TH/MM3 (1.0-4.8); MEAN CELL VOLUME 85.8 FL (80.0-100.0); MEAN CORPUSCULAR HEMOGLOBIN 28.8 PG (27.0-34.0); MEAN CORPUSCULAR HGB CONC 33.6 % (32.0-36.0); MONO % 7.6 % (0.0-8.0); NEUT % 80.1 % (16.0-70.0); PLATELET COUNT 252 TH/MM3 (150-450); RED BLOOD COUNT 3.47 MIL/MM3 (4.00-5.30); RED CELL DISTRIBUTION WIDTH 14.1 % (11.6-17.2); WHITE BLOOD COUNT 8.3 TH/MM3 (4.0-11.0)
--- NOTE | 2017-06-18 16:08 | PD ---
HPI Chief Complaint: Meter Installer And Remover Problem/Complaint Time Seen by Provider: 15:18 Travel History International Travel<30 days: No Contact w/Intl Traveler<30days: No Traveled to known affect area: No History of Present Illness HPI 36-year-old Afro-Japanese female presents the emergency department for follow- up recent ectopic with emergent surgery discharged home on June 13. Patient states she is here for follow-up, and states some vaginal bleeding since this morning. Patient continues to have some mild to moderate lower abdominal discomfort. She is not dizzy or short of breath. She denies fever chills. She denies dysuria. Patient's pain is rated at about a 4 out of 10. Patient was supposed to be following [facility] with [facility] with Dr. Duran. Patient was unsure how to follow-up according to her. Patient is allergic to carbamazepine and ibuprofen. PFSH Past Medical History Asthma: Yes Blood Disorders: No Bipolar Disorder: Yes Depression: Yes Heart Rhythm Problems: No Cancer: No Cardiovascular Problems: Yes (htn) High Cholesterol: No Chemotherapy: No Chest Pain: No Congestive Heart Failure: No COPD: No Cerebrovascular Accident: Yes Diabetes: Yes Patient Takes Glucophage: No Diminished Hearing: No Endocrine: No Gastrointestinal Disorders: No Genitourinary: No Hypertension: Yes Immune Disorder: No Implanted Vascular Access Dvce: No Insomnia: Yes Musculoskeletal: No Neurologic: No Psychiatric: No Reproductive: No Respiratory: No Immunizations Current: No Radiation Therapy: No Sleep Apnea: No Thyroid Disease: No ?: Not : 3 Para: 1 Miscarriage: 2 Ectopic : Yes (2008, 2016- ruptured) Dilation and Curettage (D&C): Yes Tubal Ligation: Yes Past Surgical History Section: Yes (2001) Gynecologic Surgery: Yes (salpingo-oopherectomy from ectopic ) Other Surgery: Yes (ectopic ) Social History Alcohol Use: Yes Tobacco Use: Yes (3cigarettes per day) Substance Use: Yes (COCAINE-SMOKE LAST MONTH, MARIJUANA) Allergies-Medications (Allergen,Severity, Reaction): Coded Allergies: carbamazepine (Unverified Allergy, Severe, anaphalactic, 06/18/17) ibuprofen (Unverified Adverse Reaction, Intermediate, ABD PAIN, DIARRHEA, 06/18/17) Reported Meds & Prescriptions Reported Meds & Active Scripts Active Proventil Hfa 6.7 GM Inh (Albuterol Sulfate) 90 Mcg/Act Aer 2 Puff INH Q4-6H PRN Lisinopril 10 Mg Tab 10 Mg PO DAILY Ferrous Sulfate 325 Mg (65 Mg Iron) Tablet 325 Mg PO BIDPC Senna Plus 8.6-50 mg (Sennosides-Docusate Sodium) 8.6 Mg-50 Mg Tab 1 Tab PO BID Oxycodone-Acetaminophen 5-325 mg Tab 1 Tab PO Q4H PRN Review of Systems Except as stated in HPI: all other systems reviewed are Neg General / Constitutional: No: Fever Eyes: No: Visual changes HENT: No: Headaches Cardiovascular: No: Chest Pain or Discomfort Respiratory: No: Shortness of Breath Gastrointestinal: No: Nausea, Vomiting, Diarrhea, Abdominal Pain Genitourinary: Positive: Pelvic Pain, Vaginal Bleeding, No: Urgency, Frequency , Dysuria, Flank Pain, Discharge, Dysmenorrhea, Menorrhagia Musculoskeletal: No: Pain Skin: No Rash Neurologic: No: Weakness Psychiatric: No: Depression Endocrine: No: Polydipsia Hematologic/Lymphatic: No: Easy Bruising Physical Exam Exam Limitations: Poor Historian Narrative GENERAL: Patient appears in no acute distress. She is able to ambulate and move freely without pain. SKIN: Warm and dry. Normal color. Normal turgor. No significant pallor. Patient has old ecchymosis at the incision sites from recent laparoscopic surgery. No signs of wound dehiscence or cellulitis. HEAD: Atraumatic. Normocephalic. EYES: Pupils equal and round. No scleral icterus. No injection or drainage. ENT: No nasal bleeding or discharge. Mucous membranes pink and moist. Pharynx is clear. Airway is patent. NECK: Trachea midline. Supple nontender. CARDIOVASCULAR: Regular rate and rhythm. RESPIRATORY: No accessory muscle use. Clear to auscultation. Breath sounds equal bilaterally. GASTROINTESTINAL: Abdomen soft, mild tenderness over the surgical sites which appear to be well healing., nondistended. Hepatic and splenic margins not palpable. Perineum examined with nurse in the room and shows had with small amount of vaginal bleeding. MUSCULOSKELETAL: Extremities without clubbing, cyanosis, or edema. No obvious deformities. NEUROLOGICAL: Awake and alert. No obvious cranial nerve deficits. Motor grossly within normal limits. Five out of 5 muscle strength in the arms and legs. Normal speech. PSYCHIATRIC: Appropriate mood and affect; insight and judgment normal. Data Data Last Documented VS Vital Signs Date Time Temp Pulse Resp B/P (MAP) Pulse Ox O2 Delivery O2 Flow Rate FiO2 06/18/17 15:11 98.2 89 17 177/103 (127) 97 Orders Orders Beta Hcg (Quant/Titer) (06/18/17 15:26) Complete Blood Count With Diff (06/18/17 15:26) Comprehensive Metabolic Panel (06/18/17:26) Complete Rh (06/18/17:) Urinalysis - C+S If Indicated (06/18/17 15:26) Iv Access Insert/Monitor (06/18/17 15:26) Ecg Monitoring (06/18/17:26) Sodium Chloride 0.9% Flush (Ns Flush) (06/18/17 15:30) Urine Culture (06/18/17 15:39) Ceftriaxone Inj (Rocephin Inj) (06/18/17 16:30) Labs Laboratory Tests Test 06/18/17 15:39 06/18/17 15:46 Urine Color BROWN Urine Turbidity CLOUDY Urine pH 6.0 Urine Specific [place] 1.035 Urine Protein 100 mg/dL Urine Glucose (UA) NEG mg/dL Urine Ketones NEG mg/dL Urine Occult Blood LARGE Urine Nitrite POS Urine Bilirubin NEG Urine Urobilinogen LESS THAN 2.0 MG/DL Urine Leukocyte Esterase LARGE Urine RBC /hpf Urine WBC /hpf Urine WBC Clumps MANY Microscopic Urinalysis Comment CULTURE INDICATED White Blood Count 8.3 TH/MM3 Red Blood Count 3.47 MIL/MM3 Hemoglobin 10.0 GM/DL Hematocrit 29.8 % Mean Corpuscular Volume 85.8 FL Mean Corpuscular Hemoglobin 28.8 PG Mean Corpuscular Hemoglobin Concent 33.6 % Red Cell Distribution Width 14.1 % Platelet Count 252 TH/MM3 Mean Platelet Volume 8.2 FL Neutrophils (%) (Auto) 80.1 % Lymphocytes (%) (Auto) 9.8 % Monocytes (%) (Auto) 7.6 % Eosinophils (%) (Auto) 2.3 % Basophils (%) (Auto) 0.2 % Neutrophils # (Auto) 6.6 TH/MM3 Lymphocytes # (Auto) 0.8 TH/MM3 Monocytes # (Auto) 0.6 TH/MM3 Eosinophils # (Auto) 0.2 TH/MM3 Basophils # (Auto) 0.0 TH/MM3 CBC Comment DIFF FINAL Differential Comment Blood Urea Nitrogen 12 MG/DL Creatinine 0.91 MG/DL Random Glucose 71 MG/DL Total Protein 7.8 GM/DL Albumin 3.3 GM/DL Calcium Level 8.5 MG/DL Alkaline Phosphatase 83 U/L Aspartate Amino Transf (AST/SGOT) 22 U/L Alanine Aminotransferase (ALT/SGPT) 22 U/L Total Bilirubin 0.5 MG/DL Sodium Level 137 MEQ/L Potassium Level 4.1 MEQ/L Chloride Level 101 MEQ/L Carbon Dioxide Level 30.9 MEQ/L Anion Gap 5 MEQ/L Estimat Glomerular Filtration Rate 85 ML/MIN Human Chorionic Gonadotropin, Quant 222 MIU/ML [facility] Medical Decision Making Medical Screen Exam Complete: Yes Emergency Medical Condition: Yes Medical Record Reviewed: Yes Differential Diagnosis Recent ectopic . Status post laparoscopic surgery. Vaginal bleeding. Abdominal pain. Narrative Course Patient is medically stable at time of exam. Laboratory including CBC, CMP, urinalysis, serum hCG. CBC shows stable hemoglobin of 10.0, and hematocrit of 29.8. Room from her previous discharge hemoglobin of 9.2 and hematocrit of 27.9. Serum hCG is 222. CMP otherwise is unremarkable. Urinalysis is suggestive for urinary tract infection with 100 protein, large occult blood, positive nitrites, and large leukocyte esterase. There are many white blood cell clumps per high-powered field. Urine culture is planted. Patient is given Rocephin 1 g IV. Patient will be continued on Keflex 500 mg 3 times a day 7 days. Patient should make a follow-up appointment with [facility] to see next week. Patient can return with worsening vaginal bleeding as needed. Diagnosis Primary Impression: Suprapubic abdominal pain Additional Impressions: Urinary tract infection Qualified Codes: N30.01 - Acute cystitis with hematuria Vaginal bleeding Referrals: Victorina Duran MD call for appointment [facility] call for appointment Patient Instructions: Ectopic (ED), General Instructions Additional Instructions: CBC shows stable hemoglobin of 10.0, and hematocrit of 29.8. Room from her previous discharge hemoglobin of 9.2 and hematocrit of 27.9. Serum hCG is 222. CMP otherwise is unremarkable. Urinalysis is suggestive for urinary tract infection with 100 protein, large occult blood, positive nitrites, and large leukocyte esterase. There are many white blood cell clumps per high-powered field. Urine culture is planted. Patient is given Rocephin 1 g IV. Patient will be continued on Keflex 500 mg 3 times a day 7 days. Patient should make a follow-up appointment with women[facility] to see next week. Patient can return with worsening vaginal bleeding as needed. Med/Other Pt SpecificInfo: Prescription(s) given Disposition: 01 DISCHARGE HOME Condition: Stable Justin Fisher Jun 18, 2017 16:08
[2017-06-18 16:14] LABS: BLOOD, URINE LARGE (NEG); COMMENT (UR) CULTURE INDICATED; CULTURE IF INDICATED CULTURE INDICATED; GLUCOSE,URINE NEG (NEG); KETONE, URINE NEG (NEG); NITRITE,URINE POS (NEG)
[2017-06-18 16:19] LABS: URINE COLOR BROWN (YELLW/STRAW)
[2017-06-18 16:26] LABS: ALT (GPT) 22 U/L (10-53); ANION GAP 5 MEQ/L (5-15); AST (GOT) 22 U/L (15-37); BICARBONATE 30.9 MEQ/L (21.0-32.0); BLOOD UREA NITROGEN 12 MG/DL (7-18); CHLORIDE 101 MEQ/L (98-107); GLOMERULAR FILTRATION RATE 85 ML/MIN (>89); POTASSIUM 4.1 MEQ/L (3.5-5.1); SODIUM (NA) 137 MEQ/L (136-145)
[2017-06-18 16:30] LABS: ALKALINE PHOSPHATASE 83 U/L (45-117); BETA HCG QUANT 222 MIU/ML (0-5); TOTAL BILIRUBIN ADULT 0.5 MG/DL (0.2-1.0)
[2017-06-18] MEDS ORDERED: cefTRIAXone INJ 1,000 MG in SODIUM CHLORIDE 0.9% INJ 100 ML IV ONE (16:30)
[2017-06-18] MEDS ORDERED: CEPH-460 PO (16:41)
== END 2017-06-18 17:56 | disposition home or self-care (01) ==
LOC: NEPC 15:10
DX: R10.2 Pelvic and perineal pain (principal); N30.01 Acute cystitis with hematuria; B96.20 Unspecified Escherichia coli [E. coli] as the cause of diseases classified elsewhere
CPT/HCPCS: 36430; 71010; 71275; 76700; 78580; 80048; 80053; 80307; 81001; 82948; 83690; 83735; 84100; 84443; 84484; 84702; 85025; 85027; 85384; 85610; 85730; 86850; 86900; 86901; 86920; 87077; 87086; 87186; 87641; 88305; 93005; 93306; 93970; 94150; 96374; 99285; A9540; C9113; J0330; J0360; J0690; J0696; J1100; J1644; J1756; J2250; J2370; J2405; J3010; J3480; P9016; Q9967